=== PATIENT | female | born 1945 | race Caucasian/White ===

== ENCOUNTER 2016-12-06 08:13 | Emergency (ER) | payer MEDICARE ==
[2016-12-06] MEDS ORDERED: NORMAL SALINE 1000 ML 1,000 ML IV ONE (08:23)
[2016-12-06] MEDS ORDERED: ONDANSETRON HCL INJ/PF 4 MG/2 ML SDV IV ONE (08:23)
[2016-12-06 08:45] LABS: ABSOLUTE LYMPHOCYTES (AUTO) 1.3 10^3/uL (0.5-4.7); ABSOLUTE MONOCYTES (AUTO) 0.1 10^3/uL (0.1-1.4); ABSOLUTE NEUT (AUTO) 11.2 10^3/uL (1.7-8.2); BASOPHILS % (AUTO) 0.1 % (0-2); HEMATOCRIT 38.6 % (36.0-47.0); HEMOGLOBIN 12.5 g/dL (12.0-15.5); HGB HCT DIFFERENCE -1.1; LYMPHOCYTES % (AUTO) 10.6 % (13-45); MEAN CORPUSCULAR HEMOGLOBIN 28.6 pg (27.0-33.4); MEAN CORPUSCULAR HGB CONC 32.3 g/dL (32.0-36.0); MEAN CORPUSCULAR VOLUME 89 fl (80-97); MONOCYTES % (AUTO) 0.8 % (3-13); RED BLOOD COUNT 4.36 10^6/uL (3.72-5.28); SEGMENTED NEUTROPHILS % (AUTO) 88.5 % (42-78); WHITE BLOOD COUNT 12.7 10^3/uL (4.0-10.5)
[2016-12-06] MEDS ORDERED: MECLIZINE HCL 25 MG TABLET PO ONE (08:53)
[2016-12-06] MEDS ORDERED: LORAZEPAM INJ 2 MG/1 ML VIAL IV ONE (08:53)
[2016-12-06 09:00] LABS: ALANINE AMINOTRANSFERASE 28 U/L (9-52); ALBUMIN 3.9 g/dL (3.5-5.0); ALKALINE PHOSPHATASE 65 U/L (38-126); ANION GAP 15 (5-19); ASPARTATE AMINO TRANSFERASE 16 U/L (14-36); BILIRUBIN,TOTAL 0.8 mg/dL (0.2-1.3); BLOOD UREA NITROGEN 22 mg/dL (7-20); CALCIUM 9.1 mg/dL (8.4-10.2); CARBON DIOXIDE 23 mmol/L (22-30); CHLORIDE 105 mmol/L (98-107); CREATINE KINASE 21 U/L (30-135); CREATININE RESULT 0.73 mg/dL (0.52-1.25); GLUCOSE 200 mg/dL (75-110); LIPASE 48.6 U/L (23-300); POTASSIUM 3.9 mmol/L (3.6-5.0); SODIUM 143.2 mmol/L (137-145); TOTAL PROTEIN 6.8 g/dL (6.3-8.2)
[2016-12-06 09:18] LABS: TROPONIN I < 0.012 ng/mL
--- NOTE | 2016-12-06 09:24 | ER Document Report ---
ED General - General Chief Complaint: Dizziness Stated Complaint: NAUSEA,VOMITING Mode of Arrival: Ambulatory Information source: Patient Notes: 71-year-old female history of vertigo presents with complaints of sudden vertigo sensations. Patient notes she suddenly got dizzy and nauseous and vomiting. Patient notes the room is spinning. Denies any neurological deficits otherwise. Patient vomited multiple times as a result overnight and today TRAVEL OUTSIDE OF THE [place] IN LAST 30 DAYS: No - HPI Onset: Yesterday Onset/Duration: Sudden Quality of pain: No pain Severity: Moderate Pain Level: Denies Associated symptoms: Nausea, Vomiting, Other Exacerbated by: Movement Relieved by: Denies Similar symptoms previously: Yes Recently seen / treated by doctor: No - Related Data Allergies/Adverse Reactions: No Known Allergies Allergy (Unverified 03/26/16 10:03) Past Medical History - Social History Smoking Status: Never Smoker Cigarette use (# per day): No Chew tobacco use (# tins/day): No Smoking Education Provided: No Family History: Reviewed & Not Pertinent - Past Medical History Cardiac Medical History: Reports: Hx Hypercholesterolemia, Hx Hypertension Denies: Hx Coronary Artery Disease, Hx Heart Attack Pulmonary Medical History: Denies: Hx Asthma, Hx Bronchitis, Hx COPD, Hx Pneumonia Neurological Medical History: Denies: Hx Cerebrovascular Accident, Hx Seizures Endocrine Medical History: Reports: Hx Diabetes Mellitus Type 2 Musculoskeltal Medical History: Reports Hx Arthritis Psychiatric Medical History: Reports: Hx Depression Past Surgical History: Reports: Hx Breast Surgery, Hx Orthopedic Surgery - Immunizations Hx Diphtheria, Pertussis, Tetanus Vaccination: - UNSURE Review of Systems - Review of Systems Notes: REVIEW OF SYSTEMS: CONSTITUTIONAL : Denies fever, chills, or sweats. Denies recent illness. EENT: Denies eye, ear, throat, or mouth pain or symptoms. Denies nasal or sinus congestion or discharge. Denies throat, tongue, or mouth swelling or difficulty swallowing. CARDIOVASCULAR: Denies chest pain. Denies palpitations or racing or irregular heart beat. Denies ankle edema. RESPIRATORY: Denies cough, cold, or chest congestion. Denies shortness of breath, difficulty breathing, or wheezing. GASTROINTESTINAL: Admits nausea vomiting GENITOURINARY: Denies difficulty urinating, painful urination, burning, frequency, blood in urine, or discharge. FEMALE GENITOURINARY: Denies vaginal bleeding, heavy or abnormal periods, irregular periods. Denies vaginal discharge or odor. MUSCULOSKELETAL: Denies back or neck pain or stiffness. Denies joint pain or swelling. SKIN: Denies rash, lesions or sores. HEMATOLOGIC : Denies easy bruising or bleeding. LYMPHATIC: Denies swollen, enlarged glands. NEUROLOGICAL: Admits to dizziness PSYCHIATRIC: Denies anxiety or stress. Denies depression, suicidal ideation, or homicidal ideation. ALL OTHER SYSTEMS REVIEWED AND NEGATIVE. Dictation was performed using [employer] voice recognition software PHYSICAL EXAMINATION: GENERAL: Well-appearing, well-nourished and in no acute distress. HEAD: Atraumatic, normocephalic. EYES: Pupils equal round and reactive to light, extraocular movements intact, conjunctiva are normal. ENT: Nares patent, oropharynx clear without exudates. Moist mucous membranes. NECK: Normal range of motion, supple without lymphadenopathy LUNGS: Breath sounds clear to auscultation bilaterally and equal. No wheezes rales or rhonchi. HEART: Regular rate and rhythm without murmurs ABDOMEN: Soft, nontender, nondistended abdomen. No guarding, no rebound. No masses appreciated. Female : deferred Musculoskeletal: Normal range of motion, no pitting or edema. No cyanosis. NEUROLOGICAL: Cranial nerves grossly intact. Normal speech, normal gait. Normal sensory, motor exams PSYCH: Normal mood, normal affect. SKIN: Warm, Dry, normal turgor, no rashes or lesions noted. Physical Exam - Vital signs Vitals: Resp Pulse Ox 24 H 97 12/06/16 08:31 12/06/16 08:31 Course - Re-evaluation Re-evalutation: 12/06/16 09:24 Patient has probable vertigo, given Antivert and Ativan, lab results note no significant abnormality except for mild white count elevation 12/06/16 10:10 CT head lab work note no significant abnormality, patient is resting comfortable satting 96%. Patient will be discharged home as she is otherwise stable After performing a Medical Screening Examination, I estimate there is LOW risk for INTRACRANIAL HEMORRHAGE, ISCHEMIC CVA, MALIGNANT DYSRHYTHMIA, ACUTE CORONARY SYNDROME, MENINGITIS, PULMONARY EMBOLISM, or SEPSIS thus I consider the discharge disposition reasonable. The patient and I have discussed the diagnosis and risks, and we agree with discharging home with close follow-up with the understanding that symptoms and presentations can change. We also discussed returning to the Emergency Department immediately if new or worsening symptoms occur. We have discussed the symptoms which are most concerning (e.g., changing or worsening pain, weakness, vomiting, fever) that necessitate immediate return. - Vital Signs Vital signs: Temp Pulse Resp BP Pulse Ox 97.6 F 63 18 141/51 H 99 12/06/16 08:38 12/06/16 08:38 12/06/16 09:02 12/06/16 09:02 12/06/16 09:02 - Laboratory Result Diagrams: 12/06/16 08:28 12/06/16 08:28 Laboratory results interpreted by me: 12/06/16 12/06/16 08:28 08:28 WBC 12.7 H RDW 15.0 H Seg Neutrophils % 88.5 H Lymphocytes % 10.6 L Monocytes % 0.8 L Absolute Neutrophils 11.2 H BUN 22 H Glucose 200 H Creatine Kinase 21 L - Diagnostic Test Radiology reviewed: Image reviewed, Reports reviewed Discharge - Discharge Clinical Impression: Vertigo Nausea & vomiting Qualifiers: Vomiting type: unspecified Vomiting Intractability: non-intractable Qualified Code(s): R11.2 - Nausea with vomiting, unspecified Condition: Stable Disposition: HOME, SELF-CARE Instructions: Vomiting ([facility]), Vertigo ([facility]) Prescriptions: Ondansetron [Zofran Odt 4 mg Tablet] 1 - 2 tab PO Q4HP PRN #20 tab.rapdis PRN Reason: Lorazepam [Ativan 1 mg Tablet] 1 mg PO Q4 PRN #14 tab PRN Reason: Meclizine HCl [Antivert 25 mg Tablet] 25 mg PO TID PRN #21 tablet PRN Reason: Referrals: QAMAR MASCORRO MD [ACTIVE STAFF] - Follow up as needed
[2016-12-06 10:13] VITALS: BP 121/54
== END 2016-12-06 10:59 | disposition home or self-care (01) ==
LOC: ER 08:13
DX: R42 Dizziness and giddiness (principal); R11.2 Nausea with vomiting, unspecified
CPT/HCPCS: 99285; 96374; 96375; 36415; 82553; 82550; 83690; 85025; 80053; 84484; 71010; 70450; A9270; J2060; J2405; J7030

== ENCOUNTER → 2016-12-15 | Outpatient (CLI) | payer MEDICARE | LOC: OD 10:24 | PROVIDERS: ATTEND Plastic Surgery | DX: L97.322 Non-pressure chronic ulcer of left ankle with fat layer exposed (principal) ==

== ENCOUNTER 2017-01-22 09:24 | Day surgery (SDC) | payer MEDICARE ==
[~2017-01-22 09:24] MED LIST: CHONDR SU A NA/HYALUR INTRAOC KIT (SURGICARE) ONE; EPINEPHRINE INJ/PF 1 MG/1 ML AMPULE ONE; KETOROLAC TROMETHAMINE 0.45% 4 DROP/0.4 ML DROPERETTE OS PRN; LIDOCAINE 1% INJ-PF (10 MG/ML) 30 ML SDV ONE; MIDAZOLAM 2 MG/2 ML INJ ONE
[2017-01-22] MEDS: BESIFLOXACIN HCL 0.6% OPH SUSP 5 ML BOTTLE OS PRN ×3 (09:49→11:07)
[2017-01-22] MEDS: CYCLOPENTOLATE 0.2%/PHENYLEPHRINE 1% OPH SOLN 2 ML OS PRN ×3 (09:49→10:09)
[2017-01-22] MEDS: TROPICAMIDE 1% OPH SOLN 3 ML OS PRN ×3 (09:49→10:09)
[2017-01-22] MEDS: TETRACAINE HCL 0.5% OPH SOLN 2 ML OS PRN ×3 (09:50→10:42)
--- NOTE | 2017-01-22 20:03 | [facility] OPERATIVE REPORT E ---
[facility] Operative Report NAME: BARBARA CROWLEY AGE: 71Y DATE OF SURGERY: 01/22/2017 ROOM: PREOPERATIVE DIAGNOSIS: CATARACT, LEFT EYE. POSTOPERATIVE DIAGNOSIS: CATARACT, LEFT EYE. OPERATION: Cataract extraction with intraocular lens implant of the left eye. SURGEON: JOSE DANIEL GUZMAN M.D. ANESTHESIA: Topical. PROCEDURE: After obtaining appropriate consent, the patient's left eye was prepped and draped in sterile fashion as well as the surgeon in a sterile manner and cataract surgery was started. First a paracentesis blade was used to make a small side-port incision. Viscoelastic was used to inflate the anterior chamber. Next a 2.4 mm incision was made with the paracentesis blade. A continuous capsulorrhexis incision was made using a cystotome and Utrata forceps. Following this hydrodissection was carried out to make the lens fully loose and mobile and it was rotated 90 degrees. Following this, a kiiimd-wsv-gmasdor technique was used to phacoemulsify the lens with a CDE of 8.07. The remaining cortex was removed with irrigation/aspiration. Provisc was instilled into the capsular bag to inflate the bag. A SN60WF, 22.0 diopter lens was placed. The remaining viscoelastic material was removed with irrigation/aspiration. Following this, a 10-0 nylon suture was used to close the incision and it was found to be watertight. Vigamox was instilled in the eye and a protective shield was placed over the eye. The patient returned to the postoperative recovery in stable condition. DICTATING PHYSICIAN: JOSE DANIEL GUZMAN M.D. [id number] PHY#: [id number] ID: [id number] JOB#: [id number] ACCT: [id number] cc:JOSE DANIEL GUZMAN M.D. >
--- NOTE | 2017-01-22 20:09 | DISCHARGE SUMMARY E ---
Discharge Summary NAME: BARBARA CROWLEY : 1945 AGE: 71Y ADMITTED: 01/22/2017 DISCHARGED: 01/22/2017 This is a 71-year-old female who underwent cataract extraction of the left eye. DIAGNOSIS: Cataract, left eye. She underwent surgery because she was having difficulty reading phone books and medicine bottles. DISCHARGE INSTRUCTIONS: She is to be on a regular diet. No bending at her waist, no heavy lifting. She is to use Besivance, Ilevro, and Durezol at 3:00 p.m. and 8:00 p.m., and sleep with a rigid shield. I will see her for her one day postoperative tomorrow. DICTATING PHYSICIAN: JOSE DANIEL GUZMAN M.D. [id number] PHY#: [id number] ID: [id number] JOB#: [id number] ACCT: [id number] cc:JOSE DANIEL GUZMAN M.D. >
== END 2017-01-22 11:49 | disposition home or self-care (01) ==
LOC: SC 09:24
PROVIDERS: ATTEND Internal Medicine
PROC: 08RK3JZ Replacement of Left Lens with Synthetic Substitute, Percutaneous Approach (ICD-10-PCS; principal; 2017-01-22 10:30)
DX: H25.813 Combined forms of age-related cataract, bilateral (principal); H35.3131 Nonexudative age-related macular degeneration, bilateral, early dry stage; E11.9 Type 2 diabetes mellitus without complications; H40.013 Open angle with borderline findings, low risk, bilateral; I10 Essential (primary) hypertension; E78.00 Pure hypercholesterolemia, unspecified; M19.90 Unspecified osteoarthritis, unspecified site; Z79.899 Other long term (current) drug therapy; Z79.84 Long term (current) use of oral hypoglycemic drugs; Z79.82 Long term (current) use of aspirin; Z85.3 Personal history of malignant neoplasm of breast
CPT/HCPCS: 66984; 82962; V2632; J3490 ×2; A9270; J0171; 142; J2250

== ENCOUNTER 2017-02-19 08:42 | Day surgery (SDC) | payer MEDICARE ==
[~2017-02-19 08:42] MED LIST changes: +KETOROLAC TROMETHAMINE 0.45% 4 DROP/0.4 ML DROPERETTE OD PRN; -KETOROLAC TROMETHAMINE 0.45% 4 DROP/0.4 ML DROPERETTE OS PRN; -MIDAZOLAM 2 MG/2 ML INJ ONE
[2017-02-19] MEDS: TROPICAMIDE 1% OPH SOLN 3 ML OD PRN ×3 (08:57→09:17)
[2017-02-19] MEDS: CYCLOPENTOLATE 0.2%/PHENYLEPHRINE 1% OPH SOLN 2 ML OD PRN ×3 (08:57→09:17)
[2017-02-19] MEDS: BESIFLOXACIN HCL 0.6% OPH SUSP 5 ML BOTTLE OD PRN ×4 (08:57→09:56)
[2017-02-19] MEDS: TETRACAINE HCL 0.5% OPH SOLN 2 ML OD PRN ×3 (08:58→09:35)
[2017-02-19] MEDS ORDERED: MIDAZOLAM 2 MG/2 ML INJ ONE (09:06)
--- NOTE | 2017-02-19 21:15 | [facility] OPERATIVE REPORT E ---
[facility] Operative Report NAME: BARBARA CROWLEY AGE: 71Y DATE OF SURGERY: 02/19/2017 ROOM: PREOPERATIVE DIAGNOSIS: Cataract, right eye. POSTOPERATIVE DIAGNOSIS: Cataract, right eye. OPERATION: Cataract extraction with intraocular lens implant of the right eye. SURGEON: JOSE DANIEL GUZMAN M.D. ANESTHESIA: Topical. PROCEDURE: After obtaining appropriate consent, the patient's right eye was prepped and draped in sterile fashion as well as the surgeon in a sterile manner and cataract surgery was started. First a paracentesis blade was used to make a small side-port incision. Viscoelastic was used to inflate the anterior chamber. Next a 2.4 mm incision was made with the paracentesis blade. A continuous capsulorrhexis incision was made using a cystotome and Utrata forceps. Following this hydrodissection was carried out to make the lens fully loose and mobile and it was rotated 90 degrees. Following this, a ycjxxv-vbi-mocwryh technique was used to phacoemulsify the lens with a CDE of 8.97. The remaining cortex was removed with irrigation/aspiration. Provisc was instilled into the capsular bag to inflate the bag. A SN60WF, 22.0 diopter lens was placed. The remaining viscoelastic material was removed with irrigation/aspiration. Following this, a 10-0 nylon suture was used to close the incision and it was found to be watertight. Vigamox was instilled in the eye and a protective shield was placed over the eye. The patient returned to the postoperative recovery in stable condition. DICTATING PHYSICIAN: JOSE DANIEL GUZMAN M.D. [id number] PHY#: [id number] ID: [id number] JOB#: [id number] ACCT: [id number] cc:JOSE DANIEL GUZMAN M.D. >
--- NOTE | 2017-02-19 21:20 | [facility] DISCHARGE SUMMARY E ---
[facility] Discharge Summary NAME: BARBARA CROWLEY AGE: 71Y ADMITTED: 02/19/2017 DISCHARGED: 02/19/2017 HOSPITAL COURSE: This is a 71-year-old female who underwent cataract extraction of her right eye. DIAGNOSIS: Cataract, right eye. INDICATIONS: She underwent surgery because she was having difficulty seeing TV and reading medicine bottles. DISCHARGE INSTRUCTIONS: She should be on a regular diet. No bending at her waist. No heavy lifting. She should use her Besivance, Ilevro, and Durezol at 3 p.m. and 8 p.m. and sleep with a rigid shield. I will see her for her 1 day postoperative tomorrow. DICTATING PHYSICIAN: JOSE DANIEL GUZMAN M.D. [id number] PHY#: [id number] ID: [id number] JOB#: [id number] ACCT: [id number] cc:JOSE DANIEL GUZMAN M.D. >
== END 2017-02-19 10:42 | disposition home or self-care (01) ==
LOC: SC 08:42
PROVIDERS: ATTEND Internal Medicine
PROC: 08RJ3JZ Replacement of Right Lens with Synthetic Substitute, Percutaneous Approach (ICD-10-PCS; principal; 2017-02-19 09:30)
DX: H25.811 Combined forms of age-related cataract, right eye (principal); Z96.1 Presence of intraocular lens; E11.9 Type 2 diabetes mellitus without complications; I10 Essential (primary) hypertension; Z79.84 Long term (current) use of oral hypoglycemic drugs; Z79.899 Other long term (current) drug therapy; Z79.82 Long term (current) use of aspirin
CPT/HCPCS: 66984; 82962; V2632; J2250; J3490 ×2; A9270; J0171; 142

== ENCOUNTER 2018-07-21 19:10 | Inpatient (IN) | payer MEDICARE ==
--- NOTE | 2018-07-21 19:46 | ER Document Report ---
ED Extremity Problem, Lower - General Chief Complaint: Leg Injury Stated Complaint: LEFT ANKLE PAIN Time Seen by Provider: 07/21/18 19:39 Mode of Arrival: Medic Information source: Patient Notes: Patient is a 72-year-old morbidly obese female comes to emergency room via EMS with a complaint of a fall with a deformity in the right lower extremity. Patient states that she was getting up out of her recliner using her walker she was rounding a corner to go to the kitchen and she says "I just went down" landing on my butt and had instant pain. Patient states she was unable to get herself to her feet until EMS arrived and were able to place her on a stretcher. Patient has a history of fracture of that left lower ankle in [address] Boone. According to patient she has had some complications after surgery and she wears specialized support for that ankle and foot which she has been doing well with. She uses the walker at all times in the house but uses a cane when she goes out. She denies any other injuries had no head trauma. TRAVEL OUTSIDE OF THE [place] IN LAST 30 DAYS: No - HPI Patient complains to provider of: Injury, Pain, Swelling Location: Ankle, Leg Occurred: Just prior to arrival Where: Home Onset/Duration: Sudden, Worse Quality of pain: Sharp, Stabbing Severity: Moderate Pain Level: 3 Context: Fell Recent injury: Yes Associated symptoms: Unable to bear weight Exacerbated by: Movement Relieved by: Elevation, Ice, Rest Other injuries: No other sustained injuries - Related Data Allergies/Adverse Reactions: meclizine Adverse Reaction (Intermediate, Verified 02/19/17 09:05) Dizziness, VOMITING Past Medical History - General Information source: Patient, [facility] Records - Social History Smoking Status: Never Smoker Cigarette use (# per day): No Chew tobacco use (# tins/day): No Smoking Education Provided: No Frequency of alcohol use: None Drug Abuse: None Lives with: Family Family History: Reviewed & Not Pertinent - Past Medical History Cardiac Medical History: Reports: Hx Hypercholesterolemia, Hx Hypertension Denies: Hx Coronary Artery Disease, Hx Heart Attack Pulmonary Medical History: Denies: Hx Asthma, Hx Bronchitis, Hx COPD, Hx Pneumonia Neurological Medical History: Denies: Hx Cerebrovascular Accident, Hx Seizures - VERTIGO Endocrine Medical History: Reports: Hx Diabetes Mellitus Type 2 GI Medical History: Denies: Hx Hepatitis, Hx Hiatal Hernia, Hx Ulcer Musculoskeletal Medical History: Reports Hx Arthritis Psychiatric Medical History: Reports: Hx Depression Infectious Medical History: Denies: Hx Hepatitis Past Surgical History: Reports: Hx Breast Surgery, Hx Mastectomy - LUMPECTOMY, Hx Orthopedic Surgery. Denies: Hx Hysterectomy, Hx Open Heart Surgery, Hx Pacemaker - Immunizations Hx Diphtheria, Pertussis, Tetanus Vaccination: - UNSURE Review of Systems - Review of Systems Constitutional: No symptoms reported EENT: No symptoms reported Cardiovascular: No symptoms reported Respiratory: No symptoms reported Gastrointestinal: No symptoms reported Genitourinary: No symptoms reported Female Genitourinary: No symptoms reported Musculoskeletal: See HPI, Deformity, Leg swelling, Ankle swelling Skin: No symptoms reported Hematologic/Lymphatic: No symptoms reported Neurological/Psychological: No symptoms reported -: Yes All other systems reviewed and negative Physical Exam - Vital signs Vitals: Temp Pulse Resp BP Pulse Ox 98.2 F 64 25 H 133/56 H 96 07/21/18 19:24 07/21/18 19:24 07/21/18 19:24 07/21/18 19:24 07/21/18 19:24 Interpretation: Hypertensive - Notes Notes: Patient is well-nourished well-developed morbidly obese female she is in no apparent distress but does appear somewhat uncomfortable however as long as she remains still she has no pain. - General General appearance: Alert In distress: None - HEENT Head: Normocephalic, Atraumatic Eyes: Normal Ears: Normal External canal: Normal Sinus: Normal Nasal: Normal Mouth/Lips: Normal Mucous membranes: Normal, Moist Pharynx: Normal. No: Blood in hypopharynx, Erythema, Exudate, Peritonsillar abscess, Post nasal drainage, Retropharyngeal abscess, Tonsillar hypertrophy, Uvular edema, Potential airway comprom. Neck: Normal, Supple. No: Anterior cervical chain, Posterior cervical chain, Brudzinski, Kernig's, Lymphadenopathy, Meningismus, Shotty nodes, Subcutaneous emphysema, Thyroid nodule, Thyromegally - Respiratory Respiratory status: No respiratory distress Chest status: Nontender Breath sounds: Normal. No: Rales, Rhonchi, Stridor, Wheezing Chest palpation: Normal - Cardiovascular Rhythm: Regular Heart sounds: Normal auscultation Murmur: No - Abdominal Inspection: Normal Distension: No distension. No: Tympanitic Bowel sounds: Normal Tenderness: Nontender Organomegaly: No organomegaly - Extremities General upper extremity: Normal inspection, Nontender, Normal ROM, Normal strength Forearm: Normal, Nontender, Abrasion Wrist: Normal, Nontender Calf: Tender, Deformity, Unable to bear weight, Other - Examination patient's left lower extremity shows her to be a deformity at the distal end of the tib- fib near the ankle area but slightly above. Patient's foot is rotated outward. She has good normal color currently with good vascular flow. She has good movement of her toes. Ankle: Tender, Deformity, Limited ROM, Unable to bear weight, Other - Patient does display good dorsalis pedal pulse as well as posterior tibial pulses are present. Foot: Normal, Nontender, Unable to bear weight, Other - Again posterior tibial pulses and dorsalis pedal pulses are intact patient has good cap refill in the nailbeds of the toes of the left foot. - Neurological Neuro grossly intact: Yes Cognition: Normal Orientation: AAOx4 Winn Coma Scale Eye Opening: Spontaneous Joana Coma Scale Verbal: Oriented Winn Coma Scale Motor: Obeys Commands Joana Coma Scale Total: 15 Speech: Normal Course - Re-evaluation Re-evalutation: 07/21/18 20:[address] Boone orthopedic surgeon and he is accepted patient into his service. I inquired with him if he would like me to consult medicine he said yes to go ahead and do that for him. Patient is hypertensive non-insulin- dependent diabetic I have ordered all the pre-labs along with the EKG and one view chest x-ray so they have everything ready for them when the time comes. Patient is comfortable. I am going to place her in a bulky splint as per Dr. Boone for now she has good vascularization good pulses distally 07/21/18 20:[address] Quintero with the hospital service and informed her of patient' s status and request by Dr. Boone for medical management. Again I have all ready ordered labs and EKGs for them. - Vital Signs Vital signs: Temp Pulse Resp BP Pulse Ox 98.2 F 64 25 H 133/56 H 96 07/21/18 19:24 07/21/18 19:24 07/21/18 19:24 07/21/18 19:24 07/21/18 19:24 - Laboratory Result Diagrams: 07/21/18 20:00 07/21/18 20:00 Laboratory results interpreted by me: 07/21/18 07/21/18 20:00 20:00 WBC 12.5 H Hgb 11.7 L Hct 35.6 L Seg Neutrophils % 80.8 H Lymphocytes % 12.9 L Absolute Neutrophils 10.1 H PT 15.9 H Procedures - Immobilization Left Posterior Ankle Pre-Proc Neuro Vasc Exam: Normal Immobilizer type: Ankle stirrup, Short Leg Posterior Performed by: Provider, PCT Post-Proc Neuro Vasc Exam: Normal Alignment checked and good: Yes Notes: 07/21/18 20:44 For stabilization of decided to do a posterior OCL along with a stirrup splint this will take some stress off of patient's leg once we get it positioned. Also be easier for us to check cap refill of the toes and to keep leg straight for patient. Discharge - Discharge Clinical Impression: Closed fracture of left tibia and fibula Qualifiers: Encounter type: initial encounter Qualified Code(s): S82.202A - Unspecified fracture of shaft of left tibia, initial encounter for closed fracture Condition: Stable Disposition: ADMITTED INPATIENT Admitting Provider: Surgicalist Unit Admitted: Surgical Floor Referrals: CRISTI CANELA PA-C [COMMUNITY BASED STAFF] - Follow up as needed
[2018-07-21] MEDS ORDERED: NORMAL SALINE 1000 ML 1,000 ML IV ONE (19:52)
--- NOTE | 2018-07-21 19:55 | RADIOLOGY REPORT (SQ) ---
EXAM DESCRIPTION: TIBIA FIBULA LEFT COMPLETED DATE/TIME: 07/21/2018 7:37 pm REASON FOR STUDY: positive deformity COMPARISON: None. NUMBER OF VIEWS: Two views. TECHNIQUE: Two radiographic images acquired of the left tibia and fibula to include the knee and ank le in at least one projection. LIMITATIONS: None. FINDINGS: MINERALIZATION: Normal. BONES: Comminuted fracture of the distal tibia. Fracture of the proximal fibula. SOFT TISSUES: No obvious swelling or foreign body. OTHER: Compression plate on the distal fibula. 2 long cannulated screws are in the medial malleolus. IMPRESSION: Comminuted fracture of the distal tibia and fracture of the proximal fibula. TECHNICAL DOCUMENTATION: JOB ID: [id number] [employer]- All Rights Reserved Reading location - IP/workstation name: [email or web address]
[2018-07-21 20:31] LABS: ABSOLUTE BASOPHILS # (AUTO) 0.1 10^3/uL (0.0-0.2); ABSOLUTE EOSINOPHILS # (AUTO) 0.1 10^3/uL (0.0-0.6); ABSOLUTE LYMPHOCYTES (AUTO) 1.6 10^3/uL (0.5-4.7); ABSOLUTE MONOCYTES (AUTO) 0.6 10^3/uL (0.1-1.4); ABSOLUTE NEUT (AUTO) 10.1 10^3/uL (1.7-8.2); BASOPHILS % (AUTO) 0.6 % (0-2); EOSINOPHILS % (AUTO) 0.7 % (0-6); HEMATOCRIT 35.6 % (36.0-47.0); HEMOGLOBIN 11.7 g/dL (12.0-15.5); LYMPHOCYTES % (AUTO) 12.9 % (13-45); MEAN CORPUSCULAR HEMOGLOBIN 29.7 pg (27.0-33.4); MEAN CORPUSCULAR VOLUME 90 fl (80-97); PLATELET COUNT 186 10^3/uL (150-450); RED BLOOD COUNT 3.95 10^6/uL (3.72-5.28); SEGMENTED NEUTROPHILS % (AUTO) 80.8 % (42-78); TOTAL CELLS COUNTED % (AUTO) 100 %; WHITE BLOOD COUNT 12.5 10^3/uL (4.0-10.5)
[2018-07-21 20:35] LABS: INTERNATIONAL RATION (INR) 1.21; PROTHROMBIN TIME 15.9 SEC (11.4-15.4)
[2018-07-21 20:36] LABS: PARTIAL THROMBOPLASTIN TIME 31.4 SEC (23.5-35.8)
--- NOTE | 2018-07-21 20:51 | RADIOLOGY REPORT (SQ) ---
EXAM DESCRIPTION: CHEST SINGLE VIEW COMPLETED DATE/TIME: 07/21/2018 8:31 pm REASON FOR STUDY: pre op COMPARISON: 04/01/2016 EXAM PARAMETERS: NUMBER OF VIEWS: One view. TECHNIQUE: Single frontal radiographic view of the chest acquired. RADIATION DOSE: NA LIMITATIONS: None. FINDINGS: LUNGS AND PLEURA: No opacities, masses or pneumothorax. No pleural effusion. MEDIASTINUM AND HILAR STRUCTURES: No masses. Contour normal. HEART AND VASCULAR STRUCTURES: Cardiac silhouette is enlarged. There is no pulmonary edema. BONES: No acute findings. HARDWARE: None in the chest. OTHER: No other significant finding. IMPRESSION: Cardiomegaly. No pulmonary edema. TECHNICAL DOCUMENTATION: JOB ID: [id number] [employer]- All Rights Reserved Reading location - IP/workstation name: [email or web address]
[2018-07-21] MEDS ORDERED: FENTANYL CITRATE INJ/PF 100 MCG/2 ML AMPUL IV ONE (20:54)
[2018-07-21 20:55] LABS: ALANINE AMINOTRANSFERASE 15 U/L (9-52); ALBUMIN 3.5 g/dL (3.5-5.0); ALKALINE PHOSPHATASE 67 U/L (38-126); ANION GAP 7 (5-19); ASPARTATE AMINO TRANSFERASE 33 U/L (14-36); BILIRUBIN,DIRECT 0.2 mg/dL (0.0-0.4); BILIRUBIN,TOTAL 0.7 mg/dL (0.2-1.3); BLOOD UREA NITROGEN 20 mg/dL (7-20); CALCIUM 8.9 mg/dL (8.4-10.2); CARBON DIOXIDE 27 mmol/L (22-30); CHLORIDE 107 mmol/L (98-107); GLUCOSE 105 mg/dL (75-110); SODIUM 141.4 mmol/L (137-145); TOTAL PROTEIN 6.6 g/dL (6.3-8.2)
[2018-07-22] MEDS ORDERED: GLUCAGON,HUMAN RECOMB 1 MG INJ IM PRN (00:55)
[2018-07-22] MEDS ORDERED: DEXTROSE 40% GEL 15 GM TUBE PO PRN ×2 (00:55)
[2018-07-22] MEDS ORDERED: DEXTROSE 50%-WATER 25 GM/50 ML DISP.SYRIN IV PRN ×2 (00:55)
[2018-07-22] MEDS ORDERED: HYDRALAZINE HCL INJ/PF 20 MG/1 ML SDV IV PRN (00:56)
--- NOTE | 2018-07-22 01:25 | PDOC CONSULTATION ---
Consultation Consult Date: 07/22/18 Attending physician:: MADIE BOONE Consult reason:: Medical management History of Present Illness Admission Date/PCP: 07/21/18 21:52 RAJ JUÁREZ MD Patient complains of: Status post fall History of Present Illness: BARBARA CROWLEY is a 72 year old female who comes to the emergency department after coming out of the recliner and trying to reach her walker, she tells me that she was able to reach her walker but suddenly she fell to the floor. Before the event that she denies any dizziness, lightheadedness, shortness of breath, chest pain, palpitations or neurological symptomatology. Patient had several similar episodes in the past with multiple fractures in both lower extremities. Left lower extremity x-ray shows closed fracture of left tibia and fibula. Dr. Boone is the orthopedics handyperson and she is planned for surgery during the day. Patient has history of paroxysmal atrial fibrillation diagnosed in 2013, not on anticoagulation, on metoprolol. Patient tells me that she goes in and out of irregular heartbeat all the time but nobody has done anything about this. 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 She is on aspirin and metoprolol at home. EKG in the emergency department was poorly done. Regarding her diabetes mellitus she has been diagnosed about 10 years ago, is well controlled, her last hemoglobin A1c was about a week ago and was 5.8. Patient is on metformin and glimepiride at home Regarding her hypertension apparently is usually well controlled when she is on metoprolol, lisinopril and amlodipine. Last stress test about 5 years ago in [place], apparently unremarkable as per patient. Past Medical History Cardiac Medical History: Reports: Atrial Fibrillation, Hyperlipidema, Hypertension Endocrine Medical History: Reports: Diabetes Mellitus Type 2 Malignancy Medical History: Reports: Breast Cancer - Status post left lumpectomy with radiation and chemotherapy Musculoskeltal Medical History: Reports: Arthritis, Other - Morbid obesity Psychiatric Medical History: Reports: Depression Past Surgical History Past Surgical History: Multiple surgeries in both lower extremities including both ankles and left leg Past Surgical History: Reports: Orthopedic Surgery - Multiple orthopedic surgery in the lower extremities with history of multip, Other - Left lumpectomy Cataract surgery Social History Information Source: Patient Lives with: Family Smoking Status: Never Smoker Frequency of Alcohol Use: Rare Hx Recreational Drug Use: No Hx Prescription Drug Abuse: No Past Social History Note: Lives with her . Patient walks with a walker as per her severe knee osteoarthritis and multiple lower extremity surgeries. Family History Family History: Reviewed & Not Pertinent Family History: Grandmother and aunt on her father's side with history of breast cancer Parental Family History Reviewed: Yes - As above Children Family History Reviewed: NA Sibling(s) Family History Reviewed.: NA Medication/Allergy Home Medications: Amlodipine Besylate 5 mg PO DAILY 04/01/16 Ascorbic Acid [Vitamin C 500 mg Tablet] 500 mg PO TID 04/01/16 Aspirin [Aspirin EC] 81 mg PO DAILY 04/01/16 Atorvastatin Calcium 20 mg PO DAILY 04/01/16 Calcium Carbonate [Calcium] 600 mg PO DAILY 04/01/16 Escitalopram Oxalate [Lexapro] 20 mg PO DAILY 04/01/16 Glimepiride 1 mg PO DAILY 04/01/16 Lisinopril 10 mg PO DAILY 04/01/16 Metformin HCl [Metformin HCl ER] 1,000 mg PO DAILY 04/01/16 Metoprolol Succinate 25 mg PO DAILY 04/01/16 Besifloxacin HCl [Besivance 0.6% Oph Susp 5 ml] 1 drop OP ASDIR 01/20/17 Cholecalciferol (Vitamin D3) [Vitamin D3] 1,000 unit PO DAILY 01/20/17 Difluprednate [Durezol] 1 drop OP ASDIR 01/20/17 Naproxen Sodium [Aleve] 220 mg PO ASDIR PRN 01/20/17 Nepafenac [Ilevro] 1 drop OP ASDIR 01/20/17 Allergies/Adverse Reactions: meclizine Adverse Reaction (Intermediate, Verified 02/19/17 09:05) Dizziness, VOMITING Review of Systems Review of Systems: As outlined in the HPI, all others negative Physical Exam Vital Signs: Temp Pulse Resp BP Pulse Ox 98.1 F 64 17 146/62 H 97 07/21/18 23:04 07/21/18 19:24 07/21/18 23:02 07/21/18 22:01 07/21/18 23:02 Additional comments: General appearance: Well-developed, morbid obese, alert and cooperative, and appears to be in no acute distress Head: Normocephalic Eyes: PEERL, EOMI, vision is grossly intact. Ears: External auditory canal and tympanic membranes clear, hearing grossly intact. Nose: No nasal discharge. Throat: Oral cavity and pharynx normal. No inflammation, swelling, exudate or lesions. Neck: Neck supple, nontender without lymphadenopathy, masses or thyromegaly. Cardiac: Normal S1 and S2. No S3, S4 or murmurs. Rhythm is regular. There is no peripheral edema, cyanosis or pallor. Extremities are warm and well perfused. Capillary refill is less than 2 seconds. Left carotid bruit. Lungs: Clear to auscultation and percussion without rales, rhonchi, wheezing or diminished breath sounds. Not using accessory muscles. Abdomen: Positive bowel sounds. Soft. Nondistended, nontender. No guarding or rebound. No masses. No hepatosplenomegaly Extremities: Left lower extremity with a splint and wrapped Neurological: Cranial nerves II through XII grossly intact. Skin: Skin normal color, texture and turgor with no lesions or eruptions, warm and dry. Psychiatric: The mental examination revealed the patient was oriented to person , place, and time. The patient was able to demonstrate good judgment on recent , without hallucinations, abnormal affect or abnormal behaviors. Results Laboratory Results: 04/01/16 07/21/18 07/21/18 12:30 20:00 20:00 WBC 12.5 H RBC 3.95 Hgb 11.7 L Hct 35.6 L MCV 90 MCH 29.7 MCHC 33.0 RDW 14.0 Plt Count 186 Seg Neutrophils % 80.8 H Lymphocytes % 12.9 L Monocytes % 5.0 Eosinophils % 0.7 Basophils % 0.6 Absolute Neutrophils 10.1 H Absolute Lymphocytes 1.6 Absolute Monocytes 0.6 Absolute Eosinophils 0.1 Absolute Basophils 0.1 PT INR APTT Sodium 141.4 Potassium 4.0 Chloride 107 Carbon Dioxide 27 Anion Gap 7 BUN 20 Creatinine 0.88 Est GFR ( Amer) > 60 Est GFR (Non-Af Amer) > 60 Glucose 105 Calcium 8.9 Total Bilirubin 0.7 Direct Bilirubin 0.2 AST 33 ALT 15 Alkaline Phosphatase 67 Total Protein 6.6 Albumin 3.5 Urine Color YELLOW Urine Appearance CLOUDY Urine pH 5.0 Ur Specific [employer] 1.016 Urine Protein 100 H Urine Glucose (UA) NEGATIVE Urine Ketones NEGATIVE Urine Blood NEGATIVE Urine Nitrite NEGATIVE Urine Bilirubin NEGATIVE Urine Urobilinogen NEGATIVE Ur Leukocyte Esterase NEGATIVE Urine WBC (Auto) 2 Urine RBC (Auto) 2 Urine Bacteria (Auto) TRACE Ur Squamous Epith Cells 51 Urine Mucus (Auto) RARE Urine Ascorbic Acid 40 H 07/21/18 20:00 WBC RBC Hgb Hct MCV MCH MCHC RDW Plt Count Seg Neutrophils % Lymphocytes % Monocytes % Eosinophils % Basophils % Absolute Neutrophils Absolute Lymphocytes Absolute Monocytes Absolute Eosinophils Absolute Basophils PT 15.9 H INR 1.21 APTT 31.4 Sodium Potassium Chloride Carbon Dioxide Anion Gap BUN Creatinine Est GFR ( Amer) Est GFR (Non-Af Amer) Glucose Calcium Total Bilirubin Direct Bilirubin AST ALT Alkaline Phosphatase Total Protein Albumin Urine Color Urine Appearance Urine pH Ur Specific [employer] Urine Protein Urine Glucose (UA) Urine Ketones Urine Blood Urine Nitrite Urine Bilirubin Urine Urobilinogen Ur Leukocyte Esterase Urine WBC (Auto) Urine RBC (Auto) Urine Bacteria (Auto) Ur Squamous Epith Cells Urine Mucus (Auto) Urine Ascorbic Acid Impressions: Tibia/Fibula X-Ray 07/21/18 00:00 IMPRESSION: Comminuted fracture of the distal tibia and fracture of the proximal fibula. Chest X-Ray 07/21/18 19:51 IMPRESSION: Cardiomegaly. No pulmonary edema. Assessment & Plan - Diagnosis (1) Closed fracture of left tibia and fibula Qualifiers: Encounter type: initial encounter Qualified Code(s): S82.202A - Unspecified fracture of shaft of left tibia, initial encounter for closed fracture; S82.402A - Unspecified fracture of shaft of left fibula, initial encounter for closed fracture; S82.402A - Unspecified fracture of shaft of left fibula, initial encounter for closed fracture Is this a current diagnosis for this admission?: Yes Plan: As per orthopedic surgeon (2) Paroxysmal atrial fibrillation Is this a current diagnosis for this admission?: Yes Plan: Patient tells me he is in and out of atrial fibrillation all the time. We will will place on hold her aspirin as per possible surgery today, continue metoprolol. I do not have any information regarding her atrial fibrillation as is was diagnosed in [place] in 2013. I will ask cardiology for evaluation and cardiology clearance. We will repeat the EKG, but so far by the time I evaluated the patient she was in sinus rhythm with a heart rate in the 60s. (3) Diabetes mellitus type 2 in obese Is this a current diagnosis for this admission?: Yes Plan: Well controlled, last A1c 5.8. Metformin will be on hold, continue glimepiride. Accu-Cheks every 6 hours and the patient will be n.p.o. for surgery, insulin lispro sliding scale and hypoglycemia protocol. (4) Hypertension Qualifiers: Hypertension type: unspecified Qualified Code(s): I10 - Essential (primary ) hypertension Is this a current diagnosis for this admission?: Yes Plan: Continue with home antihypertensive medications, currently on metoprolol, lisinopril and amlodipine. - Time Time Spent: 30 to 50 Minutes
--- NOTE | 2018-07-22 07:15 | PDOC H&P ---
History of Present Illness Admission Date/PCP: 07/21/18 21:52 RAJ JUÁREZ MD History of Present Illness: BARBARA CROWLEY is a 72 year old female Patient is a 72-year-old white female known to me from her previous open reduction internal fixation of a left bimalleolar ankle fracture who has now fallen and broken just proximal to the articular surface. Past Medical History Cardiac Medical History: Reports: Atrial Fibrillation, Hyperlipidema, Hypertension Denies: Coronary Artery Disease, Myocardial Infarction Pulmonary Medical History: Denies: Asthma, Bronchitis, Chronic Obstructive Pulmonary Disease (COPD), Pneumonia Neurological Medical History: Denies: Seizures - VERTIGO Endocrine Medical History: Reports: Diabetes Mellitus Type 2 Malignancy Medical History: Reports: Breast Cancer - Status post left lumpectomy with radiation and chemotherapy GI Medical History: Denies: Hepatitis, Hiatal Hernia Musculoskeltal Medical History: Reports: Arthritis, Other - Morbid obesity Psychiatric Medical History: Denies: Depression Hematology: Denies: Anemia, Sickle Cell Disease Past Surgical History Past Surgical History: Reports: Mastectomy - LUMPECTOMY, Orthopedic Surgery - Multiple orthopedic surgery in the lower extremities with history of multip, Other - Left lumpectomy Cataract surgery Denies: Amputation, Hysterectomy, Pacemaker Social History Information Source: Patient, DrDillon Quesada, [facility] Records Lives with: Family Smoking Status: Never Smoker Frequency of Alcohol Use: None Hx Recreational Drug Use: No Drugs: None Hx Prescription Drug Abuse: No - Advance Directive Resuscitation Status: Full Code Family History Family History: Reviewed & Not Pertinent Parental Family History Reviewed: No Children Family History Reviewed: No Sibling(s) Family History Reviewed.: No Medication/Allergy Home Medications: Amlodipine Besylate 5 mg PO DAILY 04/01/16 Ascorbic Acid [Vitamin C 500 mg Tablet] 500 mg PO TID 04/01/16 Aspirin [Aspirin EC] 81 mg PO DAILY 04/01/16 Atorvastatin Calcium 20 mg PO DAILY 04/01/16 Calcium Carbonate [Calcium] 600 mg PO DAILY 04/01/16 Escitalopram Oxalate [Lexapro] 20 mg PO DAILY 04/01/16 Glimepiride 1 mg PO DAILY 04/01/16 Lisinopril 10 mg PO DAILY 04/01/16 Metformin HCl [Metformin HCl ER] 1,000 mg PO DAILY 04/01/16 Metoprolol Succinate 25 mg PO DAILY 04/01/16 Besifloxacin HCl [Besivance 0.6% Oph Susp 5 ml] 1 drop OP ASDIR 01/20/17 Cholecalciferol (Vitamin D3) [Vitamin D3] 1,000 unit PO DAILY 01/20/17 Difluprednate [Durezol] 1 drop OP ASDIR 01/20/17 Naproxen Sodium [Aleve] 220 mg PO ASDIR PRN 01/20/17 Nepafenac [Ilevro] 1 drop OP ASDIR 01/20/17 Allergies/Adverse Reactions: meclizine Adverse Reaction (Intermediate, Verified 02/19/17 09:05) Dizziness, VOMITING Review of Systems All systems: as per PMH Physical Exam Vital Signs: Temp Pulse Resp BP Pulse Ox 36.7 C 83 18 155/78 H 98 07/22/18 03:46 07/22/18 04:15 07/22/18 03:46 07/22/18 03:46 07/22/18 03:46 Intake & Output 07/21/18 07/22/18 07/23/18 06:59 06:59 06:59 Intake Total 1000 Balance 1000 Weight 123.8 kg Physical Exam: Middle-aged white female lying on hospital bed. Patient alert oriented and appropriate. Minimal apparent distress. General appearance: PRESENT: no acute distress, mild distress, obese Head exam: PRESENT: normocephalic Respiratory exam: PRESENT: unlabored Cardiovascular exam: PRESENT: RRR Vascular exam: PRESENT: normal capillary refill GI/Abdominal exam: PRESENT: soft Rectal exam: PRESENT: deferred Extremities exam: PRESENT: other - Left lower extremity immobilized in a posterior splint. There is brisk capillary refill distally. There is a significant hallux valgus deformity. Sensory examination is intact to light touch. Neurological exam: PRESENT: alert, awake, oriented to person, oriented to place , oriented to time, oriented to situation. ABSENT: motor sensory deficit Psychiatric exam: PRESENT: appropriate affect, normal mood. ABSENT: homicidal ideation, suicidal ideation Skin exam: PRESENT: dry, intact, warm. ABSENT: cyanosis, rash Results Impressions: Tibia/Fibula X-Ray 07/21/18 00:00 IMPRESSION: Comminuted fracture of the distal tibia and fracture of the proximal fibula. Chest X-Ray 07/21/18 19:51 IMPRESSION: Cardiomegaly. No pulmonary edema. Status: Imported from PACS Assessment & Plan - Diagnosis (1) Closed fracture of left tibia and fibula Qualifiers: Encounter type: initial encounter Qualified Code(s): S82.202A - Unspecified fracture of shaft of left tibia, initial encounter for closed fracture; S82.402A - Unspecified fracture of shaft of left fibula, initial encounter for closed fracture; S82.402A - Unspecified fracture of shaft of left fibula, initial encounter for closed fracture Is this a current diagnosis for this admission?: Yes Plan: 72-year-old white female status post ORIF of a left bimalleolar ankle fracture in the past and now with a superimposed distal third fracture of the tibia that extends proximally to the proximal fibula. This is consistent with a Bert new fracture. This raises the concern for potential compartment syndrome. The hospitalist service has been consulted and because of a history of arrhythmia, a cardiac consult has been requested for surgical clearance. At this point the patient's options are twofold. One is that the fracture could be treated in a cast and allowed to heal in situ. This would avoid the usual perioperative risks. The second option would be for an open reduction internal fixation. Tentatively this would involve removal of the medial malleolar screws and insertion of an intramedullary nail. - Time Time Spent: 50 to 70 Minutes Anticipated discharge: SNF Within: Other
--- NOTE | 2018-07-22 07:44 | EKG REPORT ---
SEVERITY:- ABNORMAL ECG - SINUS RHYTHM VENTRICULAR BIGEMINY FIRST DEGREE AV BLOCK DIFFUSE NONSPECIFIC ST-T CHANGES : Confirmed by: Terrell Chandler MD 22-Jul-2018 07:44:24
--- NOTE | 2018-07-22 07:47 | EKG REPORT ---
SEVERITY:- DEFECTIVE ECG - NSR 50. WITH FIRST DEGREE AVB. LOW VOLTAGE PRECORDIAL LEADS, SEVERE BASELINE TREMORS : Confirmed by: Terrell Chandler MD 22-Jul-2018 07:46:51
--- NOTE | 2018-07-22 08:33 | RADIOLOGY REPORT (SQ) ---
EXAM DESCRIPTION: CHEST SINGLE VIEW COMPLETED DATE/TIME: 07/22/2018 8:24 am REASON FOR STUDY: PRE OP COMPARISON: 07/21/2018 EXAM PARAMETERS: NUMBER OF VIEWS: One view. TECHNIQUE: Single frontal radiographic view of the chest acquired. RADIATION DOSE: NA LIMITATIONS: None. FINDINGS: LUNGS AND PLEURA: No opacities, masses or pneumothorax. No pleural effusion. MEDIASTINUM AND HILAR STRUCTURES: No masses. Contour normal. HEART AND VASCULAR STRUCTURES: Stable heart size. Normal vasculature. BONES: No acute findings. HARDWARE: Left axillary clips. OTHER: No other significant finding. IMPRESSION: NO ACUTE RADIOGRAPHIC FINDING IN THE CHEST. TECHNICAL DOCUMENTATION: JOB ID: [id number] [employer]- All Rights Reserved Reading location - IP/workstation name: [facility]-RR
[2018-07-22 08:38] LABS: HEMATOCRIT 34.3 % (36.0-47.0); HEMOGLOBIN 11.2 g/dL (12.0-15.5); MEAN CORPUSCULAR HEMOGLOBIN 29.1 pg (27.0-33.4); MEAN CORPUSCULAR HGB CONC 32.5 g/dL (32.0-36.0); MEAN CORPUSCULAR VOLUME 90 fl (80-97); PLATELET COUNT 185 10^3/uL (150-450); RED BLOOD COUNT 3.83 10^6/uL (3.72-5.28); RED CELL DISTRIBUTION WIDTH 14.1 % (11.5-14.0); WHITE BLOOD COUNT 12.7 10^3/uL (4.0-10.5)
[2018-07-22 09:03] LABS: ANION GAP 8 (5-19); BLOOD UREA NITROGEN 19 mg/dL (7-20); CALCIUM 8.6 mg/dL (8.4-10.2); CARBON DIOXIDE 26 mmol/L (22-30); CHLORIDE 107 mmol/L (98-107); GLUCOSE 142 mg/dL (75-110); POTASSIUM 4.1 mmol/L (3.6-5.0); SODIUM 140.7 mmol/L (137-145)
[2018-07-22 09:17] LABS: PROTHROMBIN TIME 14.8 SEC (11.4-15.4)
[2018-07-22] MEDS: ASPIRIN 81 MG TABLET, ENT COATED PO SCH (12:15)
[2018-07-22] MEDS: CHOLECALCIFEROL (D3) 1,000 UNIT TABLET PO SCH (12:15)
[2018-07-22] MEDS: CALCIUM CARBONATE 500 MG TABLET PO SCH (12:16)
[2018-07-22] MEDS: ESCITALOPRAM OXALATE 10 MG TABLET PO SCH (12:16)
[2018-07-22] MEDS: LISINOPRIL 10 MG TABLET PO SCH (12:16)
[2018-07-22] MEDS: AMLODIPINE BESYLATE 5 MG TABLET PO SCH (12:16)
[2018-07-22] MEDS: ATORVASTATIN CALCIUM 20 MG TABLET PO SCH (12:16)
[2018-07-22] MEDS: INSULIN LISPRO 100 UNIT/ML 3 ML VIAL SUBCUT PRN (12:29)
[2018-07-22] MEDS ORDERED: METOPROLOL TARTRATE 25 MG TABLET PO SCH (13:00)
--- NOTE | 2018-07-22 16:56 | Progress Note ---
Provider Note Provider Note: 72 y.o. M status post ORIF of a left bimalleolar ankle fracture in the past [facility], now with a superimposed distal third fracture of the tibia that extends proximally to the proximal fibula. Hospitalist service was consulted for management of DM 2, HTN and paroxysmal A. fib. Cardiology has been consulted for cardiac clearance prior to tomorrow surgery. 1. Tib/Fib fracture: plan per ortho 2. DM2: check HgbA1c in AM. Accu-Cheks before meals at bedtime. Humalog sliding scale insulin. Hold home dose metformin 3. HTN: Continue home dose lisinopril and Norvasc. IV hydralazine as needed for SBP >180 4. Paroxysmal A. fib: Patient reports remote history of PAF. No history of OR or heart failure. Current EKG demonstrates first-degree heart block. Spoke with Dr. Alexander, no plan for echocardiogram or stress test prior to surgery. Patient is cleared for surgery.
--- NOTE | 2018-07-22 21:24 | PDOC CONSULTATION ---
Consultation-Blank Consultation: CARDIOLOGY CONSULTATION by Dr. Opal Alexander on 07/22/2018. Reason for consultation: Patient with a history of hypertension and history of arrhythmia, as per patient, for preoperative cardiac risk assessment, for left leg orthopedic surgery. Patient seen at 12 noon on 07/22/2018. 60 minutes spent on this patient, with more than 50% of time spent in direct patient care. DISPOSITION: The patient is a full code. Her is a surrogate healthcare decision maker. History Of Present Illness: Patient is a morbidly obese 72-year-old female with known history of hypertension, diabetes mellitus type 2 non-insulin- dependent, who was admitted with accidental fall and has fracture of the left lower leg and ankle. She is for surgical report of the same. The patient gives a history of being told that she has a irregular heart rate, but has not been diagnosed with atrial fibrillation or any atrial tachycardia, or any major ventricular arrhythmia. There is no history of sudden . The patient had an accidental fall there was no dizziness near syncope or syncope. There is no palpitations. The patient has no chest pain or discomfort. There is no PND orthopnea. There is no leg edema. The patient denies any dizziness. Past Medical History: She has history of diabetes mellitus type 2 non-insulin- dependent, history of hypertension, and history of hyperlipidemia. She also has a past history of breast cancer which she states is cured. There is no history of asthma COPD. There is no history of coronary artery disease, DE or anginal symptoms. She states her last stress test was 5 years ago in [place], and was told it was normal. She states she was told that she has irregular heartbeat, although she denies any palpitations. On looking at the EKG the patient does have PVCs, hence this is probably what the reason she was told that she has a irregular heart rate. There is no diagnosis of atrial fibrillation or any other atrial arrhythmia. There is no sudden . There is no dizziness syncope. There is no history of congestive heart failure. There is no PND orthopnea. There is no history of thyroid disease. There is no history of TIA or CVA. There is no history of sleep apnea. There is no history of pulmonary embolism. There is no history of chronic kidney disease. There is no history of asthma or COPD. She in the past has had vertigo, which was relieved with meclizine. But the patient states she became allergic to meclizine, etiology unknown. But she has not had vertigo in many years. Vertigo did not cause the patient to have an accidental fall this time. Past Surgical History: She has had a lumpectomy in the left breast for cancer of the breast, which she states is been cured. She also states she has had left ankle/left leg surgery. FAMILY HISTORY: Denies history of coronary artery disease or sudden in the family. History of hypertension present. ALLERGIES: She is allergic to meclizine. REVIEW OF SYMPTOMS: Head: No history of headaches or head injury. CONSTITUTIONAL: NO HISTORY OF FEVER CHILLS OR RIGORS. DENIES FATIGUE OR GENERALIZED WEAKNESS. Eyes: No history of amblyopia diplopia. No history of amaurosis fugax. EARS: Past history of vertigo, none in several years. No history of tinnitus. No history of hearing loss. No history of recurrent ear infections. NOSE: No history of hayfever. No history of nosebleeds. MOUTH: No history of altered taste sensation. No ulcers in the mouth. No bleeding from the gums. THROAT: No history of odynophagia or dysphagia. No recurrent sore throats. SKIN: No history of pruritus. No history of yellowish discoloration of the skin. NECK: No history of neck pain. No history of neck swelling. No history of goiter. LUNGS: No history of asthma COPD. No history of wheezing. No history of recent cough or sputum production. No symptoms of upper or lower respiratory tract infection. No history of wheezing. No history of sleep apnea. No history of pulmonary embolism. No history of pleuritic chest pain. No history of hemoptysis. CARDIAC: History of irregular heartbeat as mentioned earlier. Note that the patient's EKG shows a significant first-degree AV block and PVCs, with sinus bradycardia. This probably secondary to patient beta-saima which have stopped. History of hypertension present no history of coronary artery disease DE or anginal symptoms. Patient denies any history of congestive heart failure. No history of PND orthopnea palpitations syncope near syncope or sudden . No leg edema. GI: No history of abdominal pain. No history of altered bowel movements. No history of fatty food intolerance. No history of GI bleed. No history of hepatitis. No history of jaundice. RENAL: No history of chronic kidney disease. No history of symptoms or UTI. No history of hematuria pyuria or dysuria. MUSCULOSKELETAL: History of arthritis present. History of fractures of the left leg as mentioned earlier, and patient with recent fracture after fall. No history of collagen vascular disease. ENDOCRINE: History of diabetes mellitus type 2 [id number]. No history of polydipsia polyuria. No history of thyroid disorder. No history of heat or cold intolerance. No hirsutism. No excessive swelling. METABOLIC: Patient is morbidly obese. There is no history of gout. The patient does have a history of hyperlipidemia. TRAVEL NURSE: No history of TIA or CVA. No history of headaches migraines or seizures. PSYCHIATRIC: No history of homicidal or suicidal ideation. No history of anxiety or depression. VASCULAR: No history of calf or buttock claudication. No history of DVT. Hematological: Past history of anemia. No history of bleeding diathesis. No history of clotting disorders. PHYSICAL EXAMINATION: The patient is morbidly obese. In no acute distress. Her pain is well controlled on the current medication. She is well-groomed. Selected Entries 07/22/18 07/22/18 10:00 11:19 Temperature 99.8 F Pulse Rate 77 Respiratory 18 Rate Blood Pressure 136/47 H Blood Pressure 76 Mean O2 Sat by Pulse 93 Oximetry Oxygen Delivery Room Air Method ( includes room air) HEAD: Is atraumatic normocephalic. EYES: Pupils are equal round regular reactive to light accommodation. Extraocular movements are normal. There is no conjunctival pallor. There is no scleral icterus. EARS: Tympanic membranes are intact. External auditory canals are clear. NOSE: There is no deviated nasal septum. There is no inflammation of the nasal mucous membrane. There is no nasal polyps. MOUTH: Mucous membrane of the mouth are moist tongue is moist. There is no ulcers. There is no bleeding from the gums. THROAT: There is no redness of the oropharynx. There is no exudates. SKIN: There is no petechia or ecchymosis. There is no skin lesions or skin rashes. NECK: Is supple. There is no JVD. Carotids are equal there is no bruit. There is no lymphadenopathy. There is no goiter. There is no accessory muscle respiration use. Trachea central. LUNGS: Is clear to auscultation percussion, without any rhonchi rales or wheezing. There is no chest wall tenderness. HEART S1-S2 is heard there is no S3 gallop there is no S4 gallop. There is a systolic murmur in the left sternal border and the apex. Clinical exam shows no murmur of aortic stenosis or aortic regurgitation or mitral stenosis or mitral regurgitation. There is no rub. ABDOMEN: Is obese. Nontender. There is no hepatosplenomegaly. All sounds well heard. EXTREMITIES: Femorals are deep. Femorals are diminished. There is no femoral bruits. Leg pulses are well felt. There is no pedal edema. There is no DVT or cellulitis. There is no cyanosis or clubbing. There is no calf tenderness. Capillary refill is normal bilaterally. TRAVEL NURSE: The patient is conscious awake alert oriented x3 with no focal deficit. PSYCHIATRIC: The patient judgment and insight are intact. Affect is normal. 07/22/18 07/22/18 07/22/18 08:20 08:20 08:20 WBC 12.7 H Hgb 11.2 L Hct 34.3 L Plt Count 185 PT 14.8 INR 1.10 APTT 32.0 Sodium 140.7 Potassium 4.1 Chloride 107 Carbon Dioxide 26 BUN 19 Creatinine 0.77 Est GFR (Non-Af Amer) > 60 Glucose 142 H Calcium 8.6 07/22/18 00:55 Dextrose 50%-Water [Dextrose Inj 50% Syringe (25 gm/50 ml)] 12.5 gm IV PRN PRN Dextrose 50%-Water [Dextrose Inj 50% Syringe (25 gm/50 ml)] 25 gm IV PRN PRN Dextrose [Glutose 40% Gel 15 gm Tube] 15 gm PO PRN PRN Dextrose [Glutose 40% Gel 15 gm Tube] 30 gm PO PRN PRN Glucagon,Human Recombinant [Glucagen Inj 1 mg Vial] 1 mg IM PRN PRN Insulin Lispro [Humalog Insulin 100 Unit/1 ml 3 ml Vial] 0 - 12 unit SUBCUT Q6HP PRN 07/22/18 00:56 Hydralazine HCl [Apresoline Inj/Pf 20 mg/1 ml Sdv] 10 mg IV Q6HP PRN 07/22/18 07:42 Morphine Sulfate [Morphine 10 mg/ml Inj] 2 mg IV Q2HP PRN Oxycodone HCl [Oxy-Ir 5 mg Tablet] 5 mg PO Q6HP PRN 07/22/18 13:00 Amlodipine Besylate [Norvasc 5 mg Tablet] 5 mg PO DAILY Aspirin [Ecotrin 81 mg EC Tablet] 81 mg PO DAILY Atorvastatin Calcium [Lipitor 20 mg Tablet] 20 mg PO DAILY Calcium Carbonate [Os-Aditya 500 mg Tablet (Oyster-Shell)] 500 mg PO DAILY Cholecalciferol (Vitamin D3) [Vitamin D3 1000 Unit Tablet] 1,000 unit PO DAILY Escitalopram Oxalate [Lexapro 10 mg Tablet] 20 mg PO DAILY Lisinopril [Prinivil 10 mg Tablet] 10 mg PO DAILY 07/23/18 00:00 Ringers Solution,Lactated [Lactated Ringers 1000 ml IV Soln] 1,000 ml IV CONTINUOUS Her EKG: Shows sinus bradycardia. Significant first-degree AV block. Nonspecific nondiagnostic mild ST depression diffusely. Ventricular bigeminy. IMPRESSION/RECOMMENDATION: 1. Status post accidental fall and fracture of the left lower leg and left ankle. For surgical repair of the same. 2. Hypertension: Well controlled. 3. Diabetes mellitus: Continue antidiabetic medication, and monitor blood sugar. 4. Hyperlipidemia: Continue current therapy. 5 Abnormal EKG: Shows significant first-degree AV block and PVCs. Would recommend stopping beta blockers, which have already done. Recheck the patient' s EKG in about 48 hours. Would monitor the patient to see if there is any major ventricular ectopy. Patient at low risk for sudden . 6. Morbid Obesity: Later, after she recovers from her current surgery, who recommended the patient have a diet and exercise program to lose weight. 7. Pre-Operative Cardiac Risk Assessment: THE patient clinically has no coronary artery disease by history. Also by exam she has no congestive heart failure or significant valvular disease. The patient does have some PVCs on her EKG, but she is at very low risk for sudden . HENCE THE PATIENT WILL BE AND ACCEPTABLE/MILD CARDIAC RISK FOR THIS SURGERY, UNDER GENERAL, OR SPINAL ANESTHESIA. PREOPERATIVELY/INTRAOPERATIVELY/and POSTOPERATIVELY WOULD RECOMMEND MONITORING PATIENT'S HEART RHYTHM ON TELEMETRY. Medications reviewed. Management plan discussed with other caregiving providers on the case.. Medical decision making is of moderate to high complexity. Note 60 minutes spent on this patient more than 50% of time spent in direct patient care. We will follow with you. Thanking you for allowing me to participate in the care of this patient. Note that the patient does not have a local wind turbine technician, since he moved here to live from [place]. Patient desires, as also her , to follow-up with me with me as a wind turbine technician. Will make arrangements for the patient to be seen in the office, when she gets discharged.
[2018-07-23] MEDS: RINGERS SOLUTION,LACTATED 1,000 ML IV PRN ×3 (00:06→16:04)
[2018-07-23 09:57] LABS: ALANINE AMINOTRANSFERASE 12 U/L (9-52); ALBUMIN 2.7 g/dL (3.5-5.0); ALKALINE PHOSPHATASE 51 U/L (38-126); ANION GAP 10 (5-19); ASPARTATE AMINO TRANSFERASE 13 U/L (14-36); BILIRUBIN,DIRECT 0.2 mg/dL (0.0-0.4); BLOOD UREA NITROGEN 21 mg/dL (7-20); CALCIUM 8.6 mg/dL (8.4-10.2); CARBON DIOXIDE 25 mmol/L (22-30); CHLORIDE 105 mmol/L (98-107); GLUCOSE 113 mg/dL (75-110); POTASSIUM 3.8 mmol/L (3.6-5.0); SODIUM 139.7 mmol/L (137-145); TOTAL PROTEIN 5.3 g/dL (6.3-8.2)
[2018-07-23] MEDS ORDERED: (PENDING PHARMACY ID) (Calcium Carbonate [Calcium] 600 MG) PO SCH (10:00)
[2018-07-23] MEDS ORDERED: (PENDING PHARMACY ID) (Cholecalciferol (Vitamin D3) [Vitamin D3] 1,000 UNIT) PO SCH (10:00)
[2018-07-23 10:04] LABS: HEMATOCRIT 29.9 % (36.0-47.0); HEMOGLOBIN 9.9 g/dL (12.0-15.5); MEAN CORPUSCULAR HEMOGLOBIN 29.6 pg (27.0-33.4); MEAN CORPUSCULAR VOLUME 90 fl (80-97); PLATELET COUNT 124 10^3/uL (150-450); RED BLOOD COUNT 3.33 10^6/uL (3.72-5.28); RED CELL DISTRIBUTION WIDTH 13.9 % (11.5-14.0)
[2018-07-23] MEDS ORDERED: CEFAZOLIN INJ 1 GM VIAL ONE ×2 (10:18→10:51)
[2018-07-23] MEDS: AMLODIPINE BESYLATE 5 MG TABLET PO SCH (10:27)
[2018-07-23] MEDS: LISINOPRIL 10 MG TABLET PO SCH (10:27)
[2018-07-23] MEDS ORDERED: LIDOCAINE 1% INJ-PF (10 MG/ML) 30 ML SDV ONE (10:43)
[2018-07-23] MEDS ORDERED: BUPIVACAINE HCL 0.25% /EPINEPHRINE INJ/PF 30 ML SDV ONE (10:43)
[2018-07-23] MEDS ORDERED: ONDANSETRON HCL INJ/PF 4 MG/2 ML SDV ONE (10:45)
[2018-07-23] MEDS ORDERED: PROPOFOL INJ 200 MG/20 ML VIAL IV ONE (10:45)
[2018-07-23] MEDS ORDERED: ACETAMINOPHEN 1,000 MG/100 ML RTUPB IV ONE (10:45)
[2018-07-23] MEDS ORDERED: DEXAMETHASONE SOD PHOSPHATE INJ 4 MG/1 ML VIAL ONE (10:45)
[2018-07-23] MEDS ORDERED: MIDAZOLAM 2 MG/2 ML INJ ONE (10:45)
[2018-07-23] MEDS ORDERED: FENTANYL CITRATE INJ/PF 100 MCG/2 ML AMPUL ONE (10:45)
[2018-07-23] MEDS ORDERED: DIPHENHYDRAMINE HCL 50 MG/ML VIAL IV PRN (11:23)
[2018-07-23] MEDS ORDERED: MORPHINE SULFATE 10 MG/ML INJ IV PRN (11:23)
[2018-07-23] MEDS ORDERED: ONDANSETRON HCL INJ/PF 4 MG/2 ML SDV IV PRN (11:23)
[2018-07-23] MEDS ORDERED: OXYCODONE-ACETAMINOPHEN 5-325 MG TABLET PO PRN ×2 (11:23)
[2018-07-23] MEDS ORDERED: FENTANYL CITRATE INJ/PF 100 MCG/2 ML AMPUL IV PRN ×3 (11:23)
[2018-07-23] MEDS ORDERED: PROMETHAZINE HCL INJ 25 MG/1 ML VIAL IV PRN ×2 (11:23)
[2018-07-23] MEDS ORDERED: MEPERIDINE HCL/PF INJ 25 MG/1 ML DISP.SYRIN IV PRN (11:23)
--- NOTE | 2018-07-23 12:02 | Operative Report ---
Operative Report DATE OF SURGERY: 07/23/18 PREOPERATIVE DIAGNOSIS: Left distal tibia fracture, Bert new variant OPERATION: Open reduction internal fixation left tibia fracture SURGEON: MADIE HAMLIN ANESTHESIA: GA ESTIMATED BLOOD LOSS: 150 PROCEDURE: With the patient supine on the operative table left lower extremities prepped and draped in a sterile fashion. The limb is elevated for exsanguination tourniquet inflated 280 torr. A medial parapatellar incision was made to give access to the tibial plateau. A guidepin is placed in a central portion AP plane with slight posterior trajectory in a lateral plane. A combined reamer was then used to fashion a cortical opening. All this hardware was removed. A ball-tipped guide rods placed down the tibia. Tibial length is measured to be between 330 and 315 mm. The tibial canal is then reamed with flexible reamers until he 11 mm reamer is passed. Subsequently a Sigrid titanium tibial nail 10 mm x 315 mm is passed over the ball-tipped guide daquan to a depth just proximal to the sub-articular surface distally. A single proximal interlock is placed. 3 distal interlocks were placed. The fracture alignment, hardware placement are check fluoroscopically and felt to be adequate. At this point the tourniquet is deflated. Hemostasis obtained with electrocautery. The wounds irrigated with bulb lavage. The subsequent closed in layers interrupted Vicryl followed by danny. A sterile compressive dressing is applied and the patient's return to the PACU in satisfactory condition.
[2018-07-23] MEDS ORDERED: TRANEXAMIC ACID INJ/PF 1,000 MG/10 ML SDV IV ONE (12:19)
--- NOTE | 2018-07-23 13:35 | RADIOLOGY REPORT (SQ) ---
EXAM DESCRIPTION: NO CHG FLUORO; TIBIA FIBULA LEFT COMPLETED DATE/TIME: 07/23/2018 1:22 pm REASON FOR STUDY: ORIF LEFT TIB/FIB ASST W/ FLUORO IN OR COMPARISON: None. FLUOROSCOPY TIME: 1.7 minutes 7 images saved to PACS. TECHNIQUE: Intra-operative images acquired during surgical procedure to evaluate progress. NUMBER OF IMAGES: 7 LIMITATIONS: None. FINDINGS: Selected images from daquan and interlocking screw fixation of distal tibial fracture. Align ment is anatomic. IMPRESSION: IMAGE(S) OBTAINED DURING PROCEDURE. COMMENT: Quality ID 145: Final reports for procedures using fluoroscopy that document radiation exp osure indices, or exposure time and number of fluorographic images (if radiation exposure indices are not available) Please consult full operative report of the attending physician for description of the procedure. TECHNICAL DOCUMENTATION: JOB ID: [id number] [employer]- All Rights Reserved Reading location - IP/workstation name: [email or web address]
--- NOTE | 2018-07-23 13:35 | RADIOLOGY REPORT (SQ) ---
EXAM DESCRIPTION: NO CHG FLUORO; TIBIA FIBULA LEFT COMPLETED DATE/TIME: 07/23/2018 1:22 pm REASON FOR STUDY: ORIF LEFT TIB/FIB ASST W/ FLUORO IN OR COMPARISON: None. FLUOROSCOPY TIME: 1.7 minutes 7 images saved to PACS. TECHNIQUE: Intra-operative images acquired during surgical procedure to evaluate progress. NUMBER OF IMAGES: 7 LIMITATIONS: None. FINDINGS: Selected images from daquan and interlocking screw fixation of distal tibial fracture. Align ment is anatomic. IMPRESSION: IMAGE(S) OBTAINED DURING PROCEDURE. COMMENT: Quality ID 145: Final reports for procedures using fluoroscopy that document radiation exp osure indices, or exposure time and number of fluorographic images (if radiation exposure indices are not available) Please consult full operative report of the attending physician for description of the procedure. TECHNICAL DOCUMENTATION: JOB ID: [id number] [employer]- All Rights Reserved Reading location - IP/workstation name: [email or web address]
[2018-07-23] MEDS: CALCIUM CARBONATE 500 MG TABLET PO SCH (13:44)
[2018-07-23] MEDS: ATORVASTATIN CALCIUM 20 MG TABLET PO SCH (13:44)
[2018-07-23] MEDS: CHOLECALCIFEROL (D3) 1,000 UNIT TABLET PO SCH (13:45)
[2018-07-23] MEDS: ESCITALOPRAM OXALATE 10 MG TABLET PO SCH (13:45)
[2018-07-23] MEDS: ASPIRIN 81 MG TABLET, ENT COATED PO SCH (13:45)
[2018-07-23] MEDS ORDERED: PHENYLEPHRINE HCL INJ/PF 10 MG/1 ML SDV ONE (16:02)
[2018-07-23] MEDS ORDERED: SUCCINYLCHOLINE CHLORIDE INJ 200 MG/10 ML VIAL ONE (16:02)
--- NOTE | 2018-07-23 16:40 | PDOC PROGRESS REPORT ---
Subjective Progress Note for:: 07/23/18 Subjective:: 72 y.o. M status post ORIF of a left bimalleolar ankle fracture in the past presented [facility] following a fall, now with a superimposed distal third fracture of the tibia that extends proximally to the proximal fibula. Hospitalist service was consulted for management of DM 2, HTN and paroxysmal A. fib. Cardiology has been consulted for cardiac clearance prior to tomorrow surgery. Plan for OR today with Dr. Boone for ORIF L tibial fracture. Reason For Visit: CLOSED FRACTURE OF LEFT TIBIA AND FIBULA Physical Exam Vital Signs: Temp Pulse Resp BP Pulse Ox 98.7 F 84 20 134/46 H 97 07/23/18 13:10 07/23/18 13:15 07/23/18 13:15 07/23/18 13:15 07/23/18 13:15 Intake & Output 07/22/18 07/23/18 07/24/18 06:59 06:59 06:59 Intake Total 1000 1479 1960 Output Total 110 Balance 1000 1479 1850 Weight 123.8 kg 123.8 kg General appearance: PRESENT: no acute distress, well-developed, well-nourished Head exam: PRESENT: atraumatic, normocephalic Eye exam: PRESENT: conjunctiva pink, EOMI, PERRLA. ABSENT: scleral icterus Ear exam: PRESENT: normal external ear exam Mouth exam: PRESENT: moist, tongue midline Neck exam: ABSENT: carotid bruit, JVD, lymphadenopathy, thyromegaly Respiratory exam: PRESENT: clear to auscultation hussein. ABSENT: rales, rhonchi, wheezes Cardiovascular exam: PRESENT: RRR. ABSENT: diastolic murmur, rubs, systolic murmur Pulses: PRESENT: normal dorsalis pedis pul Vascular exam: PRESENT: normal capillary refill GI/Abdominal exam: PRESENT: normal bowel sounds, soft. ABSENT: distended, guarding, mass, organolmegaly, rebound, tenderness Rectal exam: PRESENT: deferred Extremities exam: ABSENT: calf tenderness, clubbing, full ROM - limited ROM of LLE below the knee, pedal edema Musculoskeletal exam: PRESENT: deformity - LLE. ABSENT: ambulatory, full ROM, normal inspection Neurological exam: PRESENT: alert, awake, oriented to person, oriented to place , oriented to time, oriented to situation Psychiatric exam: PRESENT: appropriate affect, normal mood Skin exam: PRESENT: dry, intact, warm. ABSENT: cyanosis, rash Results Laboratory Results: 07/23/18 04:53 07/23/18 04:53 07/23/18 07/23/18 04:53 04:53 WBC 11.0 H RBC 3.33 L Hgb 9.9 L Hct 29.9 L MCV 90 MCH 29.6 MCHC 33.0 RDW 13.9 Plt Count 124 L Sodium 139.7 Potassium 3.8 Chloride 105 Carbon Dioxide 25 Anion Gap 10 BUN 21 H Creatinine 0.94 Est GFR ( Amer) > 60 Est GFR (Non-Af Amer) 58 L Glucose 113 H Calcium 8.6 Total Bilirubin 1.0 AST 13 L ALT 12 Alkaline Phosphatase 51 Total Protein 5.3 L Albumin 2.7 L Impressions: Chest X-Ray 07/22/18 00:00 IMPRESSION: NO ACUTE RADIOGRAPHIC FINDING IN THE CHEST. Fluoroscopy 07/23/18 00:00 IMPRESSION: IMAGE(S) OBTAINED DURING PROCEDURE. Tibia/Fibula X-Ray 07/23/18 00:00 IMPRESSION: IMAGE(S) OBTAINED DURING PROCEDURE. Status: Imported from PACS Assessment & Plan - Diagnosis (1) Closed fracture of left tibia and fibula Qualifiers: Encounter type: initial encounter Qualified Code(s): S82.202A - Unspecified fracture of shaft of left tibia, initial encounter for closed fracture; S82.402A - Unspecified fracture of shaft of left fibula, initial encounter for closed fracture; S82.402A - Unspecified fracture of shaft of left fibula, initial encounter for closed fracture Is this a current diagnosis for this admission?: Yes Plan: Management per ortho (2) Diabetes mellitus type 2 in obese Is this a current diagnosis for this admission?: Yes Plan: HgbA1c 5.9 Accu-Cheks before meals at bedtime. Humalog sliding scale insulin. Hold home dose metformin (3) Hypertension Qualifiers: Hypertension type: unspecified Qualified Code(s): I10 - Essential (primary ) hypertension Is this a current diagnosis for this admission?: Yes Plan: Continue home dose lisinopril and Norvasc. IV hydralazine as needed for SBP >180 (4) Paroxysmal atrial fibrillation Is this a current diagnosis for this admission?: Yes Plan: Patient reports remote history of PAF. No history of NC or heart failure. Current EKG demonstrates first-degree heart block. Spoke with Dr. Alexander, no plan for echocardiogram or stress test prior to surgery. Patient is cleared for surgery. - Time Time Spent with patient: Less than 15 minutes Medications reviewed and adjusted accordingly: Yes Anticipated discharge: Acute Rehab Within: within 48 hours - Inpatient Certification Based on my medical assessment, after consideration of the patient's comorbidities, presenting symptoms, or acuity I expect that the services needed warrant INPATIENT care.: Yes I certify that my determination is in accordance with my understanding of Medicare's requirements for reasonable and necessary INPATIENT services [42 CFR 412.3e].: Yes Medical Necessity: Need for Surgery - Plan Summary Plan Summary: OR TODAY FOR ORIF L TIBIAL FRACTURE. DM AND HTN WELL CONTROLLED
[2018-07-23] MEDS: CEFAZOLIN 2 GM/D5W RTU 2 GM/50 ML RTUPB IV SCH (17:14)
[2018-07-23] MEDS: OXYCODONE HCL IR 5 MG TABLET PO PRN (18:35)
[2018-07-23] MEDS: INSULIN LISPRO 100 UNIT/ML 3 ML VIAL SUBCUT PRN ×2 (18:36→22:58)
[2018-07-23] MEDS: MORPHINE SULFATE 10 MG/ML INJ IV PRN (20:18)
--- NOTE | 2018-07-23 21:38 | Progress Note ---
Provider Note Provider Note: Patient was in the operating room. Hence patient not seen today there is 2017. See the patient tomorrow that is 07/24/2018. Thanking you.
[2018-07-24] MEDS: RINGERS SOLUTION,LACTATED 1,000 ML IV PRN (03:24)
[2018-07-24] MEDS: CEFAZOLIN 2 GM/D5W RTU 2 GM/50 ML RTUPB IV SCH (03:24)
[2018-07-24 05:44] LABS: HEMATOCRIT 27.4 % (36.0-47.0); HEMOGLOBIN 8.9 g/dL (12.0-15.5); MEAN CORPUSCULAR HEMOGLOBIN 29.6 pg (27.0-33.4); MEAN CORPUSCULAR HGB CONC 32.5 g/dL (32.0-36.0); MEAN CORPUSCULAR VOLUME 91 fl (80-97); PLATELET COUNT 160 10^3/uL (150-450); RED BLOOD COUNT 3.01 10^6/uL (3.72-5.28); RED CELL DISTRIBUTION WIDTH 13.8 % (11.5-14.0); WHITE BLOOD COUNT 12.9 10^3/uL (4.0-10.5)
[2018-07-24 06:03] LABS: ANION GAP 10 (5-19); BLOOD UREA NITROGEN 22 mg/dL (7-20); CALCIUM 8.5 mg/dL (8.4-10.2); CARBON DIOXIDE 27 mmol/L (22-30); CHLORIDE 103 mmol/L (98-107); GLUCOSE 188 mg/dL (75-110); POTASSIUM 4.2 mmol/L (3.6-5.0); SODIUM 139.7 mmol/L (137-145)
[2018-07-24] MEDS: INSULIN LISPRO 100 UNIT/ML 3 ML VIAL SUBCUT PRN ×4 (07:46→22:51)
[2018-07-24] MEDS: ATORVASTATIN CALCIUM 20 MG TABLET PO SCH (09:54)
[2018-07-24] MEDS: ASPIRIN 81 MG TABLET, ENT COATED PO SCH (09:54)
[2018-07-24] MEDS: AMLODIPINE BESYLATE 5 MG TABLET PO SCH (09:54)
[2018-07-24] MEDS: CALCIUM CARBONATE 500 MG TABLET PO SCH (09:54)
[2018-07-24] MEDS: ESCITALOPRAM OXALATE 10 MG TABLET PO SCH (09:54)
[2018-07-24] MEDS: LISINOPRIL 10 MG TABLET PO SCH (09:54)
[2018-07-24] MEDS: CHOLECALCIFEROL (D3) 1,000 UNIT TABLET PO SCH (09:55)
--- NOTE | 2018-07-24 13:30 | PDOC PROGRESS REPORT ---
Subjective Progress Note for:: 07/24/18 Subjective:: Patient resting in bed. Pain well controlled. No issues overnight. Reason For Visit: CLOSED FRACTURE OF LEFT TIBIA AND FIBULA Physical Exam Vital Signs: Temp Pulse Resp BP Pulse Ox 36.8 C 72 16 128/65 H 98 07/24/18 11:04 07/24/18 11:04 07/24/18 11:04 07/24/18 11:04 07/24/18 11:04 Intake & Output 07/23/18 07/24/18 07/25/18 06:59 06:59 06:59 Intake Total 1479 4080 1000 Output Total 260 Balance 1479 3820 1000 Weight 123.8 kg 120.3 kg Adult Front & Back Image: 1 - Dressing is dry clean and intact. Intact EHL and FHL and tibialis anterior. Good sensation to light touch with good capillary refill Results Laboratory Results: 07/24/18 04:13 07/24/18 04:13 07/24/18 07/24/18 04:13 04:13 WBC 12.9 H RBC 3.01 L Hgb 8.9 L Hct 27.4 L MCV 91 MCH 29.6 MCHC 32.5 RDW 13.8 Plt Count 160 Sodium 139.7 Potassium 4.2 Chloride 103 Carbon Dioxide 27 Anion Gap 10 BUN 22 H Creatinine 0.90 Est GFR ( Amer) > 60 Est GFR (Non-Af Amer) > 60 Glucose 188 H Calcium 8.5 Impressions: Chest X-Ray 07/22/18 00:00 IMPRESSION: NO ACUTE RADIOGRAPHIC FINDING IN THE CHEST. Fluoroscopy 07/23/18 00:00 IMPRESSION: IMAGE(S) OBTAINED DURING PROCEDURE. Tibia/Fibula X-Ray 07/23/18 00:00 IMPRESSION: IMAGE(S) OBTAINED DURING PROCEDURE. Assessment & Plan - Diagnosis (1) Closed fracture of left tibia and fibula Qualifiers: Encounter type: initial encounter Qualified Code(s): S82.202A - Unspecified fracture of shaft of left tibia, initial encounter for closed fracture; S82.402A - Unspecified fracture of shaft of left fibula, initial encounter for closed fracture; S82.402A - Unspecified fracture of shaft of left fibula, initial encounter for closed fracture Is this a current diagnosis for this admission?: Yes Plan: Continue pain control. Continue DVT prophylaxis. Physical therapy. Anticipate senior care facility for rehab
[2018-07-24] MEDS: OXYCODONE HCL IR 5 MG TABLET PO PRN (14:39)
[2018-07-24] MEDS ORDERED: MAGNESIUM HYDROXIDE SUSP 30 ML UDCUP PO PRN (14:46)
--- NOTE | 2018-07-24 15:14 | PDOC PROGRESS REPORT ---
Subjective Progress Note for:: 07/24/18 Subjective:: 72 y.o. M status post ORIF of a left bimalleolar ankle fracture in the past presented to [facility] following a fall, now with a superimposed distal third fracture of the tibia that extends proximally to the proximal fibula. Hospitalist service was consulted for management of DM 2, HTN and paroxysmal A. fib. POD#1 ORIF L tibial fracture. Patient tolerated PT today but therapist recommends SNF because patient does not have adequate support at home. Reason For Visit: CLOSED FRACTURE OF LEFT TIBIA AND FIBULA Physical Exam Vital Signs: Temp Pulse Resp BP Pulse Ox 98.2 F 72 16 128/65 H 97 07/24/18 11:04 07/24/18 14:00 07/24/18 11:04 07/24/18 11:04 07/24/18 14:10 Intake & Output 07/23/18 07/24/18 07/25/18 06:59 06:59 06:59 Intake Total 1479 4080 1118 Output Total 260 Balance 1479 3820 1118 Weight 123.8 kg 120.3 kg General appearance: PRESENT: morbidly obese Eye exam: PRESENT: conjunctiva pink, PERRLA Mouth exam: PRESENT: moist Teeth exam: PRESENT: poor dentation Neck exam: PRESENT: full ROM Respiratory exam: PRESENT: symmetrical, unlabored Cardiovascular exam: PRESENT: +S1, +S2 Pulses: PRESENT: normal radial pulses GI/Abdominal exam: PRESENT: normal bowel sounds, soft. ABSENT: tenderness Rectal exam: PRESENT: deferred Extremities exam: ABSENT: full ROM Musculoskeletal exam: PRESENT: ambulatory - with assistance. ABSENT: full ROM Neurological exam: PRESENT: alert, awake, oriented to person, oriented to place , oriented to time, oriented to situation Psychiatric exam: PRESENT: appropriate affect Skin exam: PRESENT: dry, intact Results Laboratory Results: 07/24/18 04:13 07/24/18 04:13 07/24/18 07/24/18 04:13 04:13 WBC 12.9 H RBC 3.01 L Hgb 8.9 L Hct 27.4 L MCV 91 MCH 29.6 MCHC 32.5 RDW 13.8 Plt Count 160 Sodium 139.7 Potassium 4.2 Chloride 103 Carbon Dioxide 27 Anion Gap 10 BUN 22 H Creatinine 0.90 Est GFR ( Amer) > 60 Est GFR (Non-Af Amer) > 60 Glucose 188 H Calcium 8.5 Impressions: Chest X-Ray 07/22/18 00:00 IMPRESSION: NO ACUTE RADIOGRAPHIC FINDING IN THE CHEST. Fluoroscopy 07/23/18 00:00 IMPRESSION: IMAGE(S) OBTAINED DURING PROCEDURE. Tibia/Fibula X-Ray 07/23/18 00:00 IMPRESSION: IMAGE(S) OBTAINED DURING PROCEDURE. Status: Imported from PACS Assessment & Plan - Diagnosis (1) Closed fracture of left tibia and fibula Qualifiers: Encounter type: initial encounter Qualified Code(s): S82.202A - Unspecified fracture of shaft of left tibia, initial encounter for closed fracture; S82.402A - Unspecified fracture of shaft of left fibula, initial encounter for closed fracture; S82.402A - Unspecified fracture of shaft of left fibula, initial encounter for closed fracture Is this a current diagnosis for this admission?: Yes Plan: Management per ortho (2) Diabetes mellitus type 2 in obese Is this a current diagnosis for this admission?: Yes Plan: HgbA1c 5.9 Accu-Cheks before meals at bedtime. Humalog sliding scale insulin. Hold home dose metformin (3) Hypertension Qualifiers: Hypertension type: unspecified Qualified Code(s): I10 - Essential (primary ) hypertension Is this a current diagnosis for this admission?: Yes Plan: Continue home dose lisinopril and Norvasc. IV hydralazine as needed for SBP >180 (4) Paroxysmal atrial fibrillation Is this a current diagnosis for this admission?: Yes Plan: Patient reports remote history of PAF. No history of OK or heart failure. Current EKG demonstrates first-degree heart block. Patient was cleared for surgery, no intraop or postop complications - Time Time Spent with patient: 15-24 minutes Medications reviewed and adjusted accordingly: Yes Anticipated discharge: SNF Within: within 72 hours - Inpatient Certification Based on my medical assessment, after consideration of the patient's comorbidities, presenting symptoms, or acuity I expect that the services needed warrant INPATIENT care.: Yes I certify that my determination is in accordance with my understanding of Medicare's requirements for reasonable and necessary INPATIENT services [42 CFR 412.3e].: Yes Medical Necessity: Risk of Complication if Not Cared For in Hospital - Plan Summary Plan Summary: CONTINUE PT/OT. BLOOD PRESSURE AND BLOOD GLUCOSE WELL MANAGED. D/C LR IVF NOW THAT PATIENT IS EATING AND DRINKING. PLAN FOR D/C TO SNF.
[2018-07-24] MEDS: SENNOSIDES/DOCUSATE 8.6-50 MG 1 EACH TABLET PO SCH (17:01)
--- NOTE | 2018-07-24 20:42 | Progress Note ---
Provider Note Provider Note: CARDIOLOGY PROGRESS NOTE by Dr. Opal Alexander on 07/24/2018. Subjective: The patient denies any chest pain or discomfort. There is no shortness of breath. There is no PND orthopnea. There is no leg edema. There is no palpitations or near syncope or syncope. Note that the patient underwent her surgery, uneventfully. There is no TIA CVA symptoms. There is no arrhythmias seen on the monitor. PHYSICAL EXAMINATION: The patient is morbidly obese. In no acute distress she is well-groomed. There is adequate pain control. 07/24/18 11:04 Temperature 98.2 F Temperature Oral Source Pulse Rate 72 Respiratory 16 Rate Blood Pressure 128/65 H BP Location Left Arm BP Position Supine O2 Sat by Pulse 98 Oximetry Oxygen Flow 2.00 Rate Oxygen Delivery Nasal Cannula Method HEAD: Is atraumatic normocephalic. EYES: Pupils are equal round regular reactive to light accommodation. Extraocular movements are normal. There is no conjunctival pallor. There is no scleral icterus. EARS: Tympanic membranes are intact. External auditory canals are clear. NOSE: There is no deviated nasal septum. There is no inflammation of the nasal mucous membrane. There is no nasal polyps. MOUTH: Mucous membrane of the mouth are moist tongue is moist. There is no ulcers. There is no bleeding from the gums. THROAT: There is no redness of the oropharynx. There is no exudates. SKIN: There is no petechia or ecchymosis. There is no skin lesions or skin rashes. NECK: Is supple. There is no JVD. Carotids are equal there is no bruit. There is no lymphadenopathy. There is no goiter. There is no accessory muscle respiration use. Trachea central. LUNGS: Is clear to auscultation percussion, without any rhonchi rales or wheezing. There is no chest wall tenderness. HEART S1-S2 is heard there is no S3 gallop there is no S4 gallop. There is a systolic murmur in the left sternal border and the apex. Clinical exam shows no murmur of aortic stenosis or aortic regurgitation or mitral stenosis or mitral regurgitation. There is no rub. ABDOMEN: Is obese. Nontender. There is no hepatosplenomegaly. All sounds well heard. EXTREMITIES: Femorals are deep. Femorals are diminished. There is no femoral bruits. Leg pulses are well felt. There is no pedal edema. There is no DVT or cellulitis. There is no cyanosis or clubbing. There is no calf tenderness. Capillary refill is normal bilaterally. [employer]: The patient is conscious awake alert oriented x3 with no focal deficit. PSYCHIATRIC: The patient judgment and insight are intact. Affect is normal. 07/24/18 07/24/18 04:13 04:13 WBC 12.9 H Hgb 8.9 L Hct 27.4 L MCV 91 Plt Count 160 Sodium 139.7 Potassium 4.2 Chloride 103 Carbon Dioxide 27 Anion Gap 10 BUN 22 H Creatinine 0.90 Est GFR (Non-Af Amer) > 60 Glucose 188 H Calcium 8.5 IMPRESSION/RECOMMENDATION: 1. Status post accidental fall and fracture of the left lower leg and left ankle. The patient is status post uneventful surgical repair of the same. 2. Hypertension: Well controlled. 3. Diabetes mellitus: Continue antidiabetic medication, and monitor blood sugar. 4. Hyperlipidemia: Continue current therapy. 5 Abnormal EKG: Shows significant first-degree AV block and PVCs. No untoward clinical events, and patient asymptomatic. We will recheck the patient's EKG in the morning. 6. Morbid Obesity: Later, after she recovers from her current surgery, who recommended the patient have a diet and exercise program to lose weight. 7. Anemia, would carefully and cautiously watch the patient's hemoglobin, and intervene as needed. Patient's cardiac status is stable. Will sign off the case. Note 40 minutes spent on this patient with more than 50% of time spent in direct patient care. As per the patient patient's she will follow-up with me in the office after rehab.
[2018-07-24] MEDS: MORPHINE SULFATE 10 MG/ML INJ IV PRN (22:52)
[2018-07-25] MEDS: ATORVASTATIN CALCIUM 20 MG TABLET PO SCH (10:21)
[2018-07-25] MEDS: ASPIRIN 81 MG TABLET, ENT COATED PO SCH (10:21)
[2018-07-25] MEDS: ESCITALOPRAM OXALATE 10 MG TABLET PO SCH (10:21)
[2018-07-25] MEDS: AMLODIPINE BESYLATE 5 MG TABLET PO SCH (10:21)
[2018-07-25] MEDS: LISINOPRIL 10 MG TABLET PO SCH (10:22)
[2018-07-25] MEDS: CALCIUM CARBONATE 500 MG TABLET PO SCH (10:22)
[2018-07-25] MEDS: CHOLECALCIFEROL (D3) 1,000 UNIT TABLET PO SCH (10:22)
[2018-07-25] MEDS: SENNOSIDES/DOCUSATE 8.6-50 MG 1 EACH TABLET PO SCH ×2 (10:22→17:17)
[2018-07-25] MEDS: INSULIN LISPRO 100 UNIT/ML 3 ML VIAL SUBCUT PRN ×3 (11:41→22:17)
--- NOTE | 2018-07-25 12:56 | PDOC PROGRESS REPORT ---
Subjective Progress Note for:: 07/25/18 Subjective:: Patient doing very well. Pain adequately controlled. Just waiting for therapy and placement at rehab facility Reason For Visit: CLOSED FRACTURE OF LEFT TIBIA AND FIBULA Physical Exam Vital Signs: Temp Pulse Resp BP Pulse Ox 36.8 C 76 16 127/47 H 97 07/25/18 07:53 07/25/18 07:53 07/25/18 07:53 07/25/18 07:53 07/25/18 07:53 Intake & Output 07/24/18 07/25/18 07/26/18 06:59 06:59 06:59 Intake Total 4080 1384 Output Total 260 Balance 3820 1384 Weight 120.3 kg 124.1 kg General appearance: PRESENT: no acute distress Head exam: PRESENT: atraumatic, normocephalic Adult Front & Back Image: 1 - Dressing dry clean and intact. Patient is neurovascular intact distally with soft calf. Results Laboratory Results: 07/24/18 04:13 07/24/18 04:13 Impressions: Chest X-Ray 07/22/18 00:00 IMPRESSION: NO ACUTE RADIOGRAPHIC FINDING IN THE CHEST. Fluoroscopy 07/23/18 00:00 IMPRESSION: IMAGE(S) OBTAINED DURING PROCEDURE. Tibia/Fibula X-Ray 07/23/18 00:00 IMPRESSION: IMAGE(S) OBTAINED DURING PROCEDURE. Assessment & Plan - Diagnosis (1) Closed fracture of left tibia and fibula Qualifiers: Encounter type: initial encounter Qualified Code(s): S82.202A - Unspecified fracture of shaft of left tibia, initial encounter for closed fracture; S82.402A - Unspecified fracture of shaft of left fibula, initial encounter for closed fracture; S82.402A - Unspecified fracture of shaft of left fibula, initial encounter for closed fracture Is this a current diagnosis for this admission?: Yes Plan: 72-year-old female who is postop day 2 from intramedullary nailing of left distal third tibia fracture. Continue nonweightbearing and participate with therapy. Continue pain control and DVT prophylaxis Awaiting placement at rehab facility.
--- NOTE | 2018-07-25 22:21 | PDOC PROGRESS REPORT ---
Subjective Progress Note for:: 07/25/18 Subjective:: 72 y.o. M status post ORIF of a left bimalleolar ankle fracture in the past presented to [facility] following a fall, now with a superimposed distal third fracture of the tibia that extends proximally to the proximal fibula. Hospitalist service was consulted for management of DM 2, HTN and paroxysmal A. fib. POD#2 ORIF L tibial fracture. Patient tolerated PT today but therapist recommends SNF because patient does not have adequate support at home. Patient endorses constipation, no other complaints. Nursing staff has no concerns. Reason For Visit: CLOSED FRACTURE OF LEFT TIBIA AND FIBULA Physical Exam Vital Signs: Temp Pulse Resp BP Pulse Ox 98.5 F 77 15 146/51 H 96 07/25/18 19:49 07/25/18 19:49 07/25/18 19:49 07/25/18 19:49 07/25/18 19:49 Intake & Output 07/24/18 07/25/18 07/26/18 06:59 06:59 06:59 Intake Total 4080 1384 558 Output Total 260 160 Balance 3820 1384 398 Weight 120.3 kg 124.1 kg General appearance: PRESENT: morbidly obese Head exam: PRESENT: atraumatic Eye exam: PRESENT: conjunctiva pink, PERRLA Mouth exam: PRESENT: moist Neck exam: PRESENT: full ROM Respiratory exam: PRESENT: clear to auscultation hussein, symmetrical, unlabored Cardiovascular exam: PRESENT: +S1, +S2 Pulses: PRESENT: normal radial pulses GI/Abdominal exam: PRESENT: normal bowel sounds, soft Rectal exam: PRESENT: deferred Extremities exam: ABSENT: full ROM Musculoskeletal exam: PRESENT: ambulatory - with assistance. ABSENT: full ROM - limited rom of lle, normal inspection - LLE bandaged Neurological exam: PRESENT: alert, awake, oriented to person, oriented to place , oriented to time, oriented to situation Psychiatric exam: PRESENT: appropriate affect Skin exam: PRESENT: dry, intact, normal color Results Laboratory Results: 07/24/18 04:13 07/24/18 04:13 Impressions: Chest X-Ray 07/22/18 00:00 IMPRESSION: NO ACUTE RADIOGRAPHIC FINDING IN THE CHEST. Fluoroscopy 07/23/18 00:00 IMPRESSION: IMAGE(S) OBTAINED DURING PROCEDURE. Tibia/Fibula X-Ray 07/23/18 00:00 IMPRESSION: IMAGE(S) OBTAINED DURING PROCEDURE. Status: Imported from PACS Assessment & Plan - Diagnosis (1) Closed fracture of left tibia and fibula Qualifiers: Encounter type: initial encounter Qualified Code(s): S82.202A - Unspecified fracture of shaft of left tibia, initial encounter for closed fracture; S82.402A - Unspecified fracture of shaft of left fibula, initial encounter for closed fracture; S82.402A - Unspecified fracture of shaft of left fibula, initial encounter for closed fracture Is this a current diagnosis for this admission?: Yes Plan: Management per ortho (2) Diabetes mellitus type 2 in obese Is this a current diagnosis for this admission?: Yes Plan: HgbA1c 5.9 Accu-Cheks before meals at bedtime. Humalog sliding scale insulin. Hold home dose metformin (3) Hypertension Qualifiers: Hypertension type: unspecified Qualified Code(s): I10 - Essential (primary ) hypertension Is this a current diagnosis for this admission?: Yes Plan: Continue home dose lisinopril and Norvasc. IV hydralazine as needed for SBP >180 (4) Paroxysmal atrial fibrillation Is this a current diagnosis for this admission?: Yes Plan: Patient reports remote history of PAF. No history of MD or heart failure. Current EKG demonstrates first-degree heart block. Patient was cleared for surgery, no intraop or postop complications - Time Time Spent with patient: 15-24 minutes Medications reviewed and adjusted accordingly: Yes Anticipated discharge: SNF - Inpatient Certification Based on my medical assessment, after consideration of the patient's comorbidities, presenting symptoms, or acuity I expect that the services needed warrant INPATIENT care.: Yes I certify that my determination is in accordance with my understanding of Medicare's requirements for reasonable and necessary INPATIENT services [42 CFR 412.3e].: Yes Medical Necessity: Risk of Complication if Not Cared For in Hospital - Plan Summary Plan Summary: PLAN FOR D/C TO SNF PER PT RECOMMENDATIONS
[2018-07-26 07:09] LABS: HEMATOCRIT 26.5 % (36.0-47.0); HEMOGLOBIN 8.7 g/dL (12.0-15.5); MEAN CORPUSCULAR HEMOGLOBIN 29.5 pg (27.0-33.4); MEAN CORPUSCULAR VOLUME 90 fl (80-97); PLATELET COUNT 191 10^3/uL (150-450); RED BLOOD COUNT 2.96 10^6/uL (3.72-5.28); RED CELL DISTRIBUTION WIDTH 13.7 % (11.5-14.0); WHITE BLOOD COUNT 11.8 10^3/uL (4.0-10.5)
[2018-07-26 07:34] LABS: ANION GAP 5 (5-19); BLOOD UREA NITROGEN 27 mg/dL (7-20); CALCIUM 8.9 mg/dL (8.4-10.2); CARBON DIOXIDE 33 mmol/L (22-30); CHLORIDE 103 mmol/L (98-107); GLUCOSE 129 mg/dL (75-110); PHOSPHORUS 3.3 mg/dL (2.5-4.5); POTASSIUM 4.3 mmol/L (3.6-5.0); SODIUM 140.7 mmol/L (137-145)
[2018-07-26] MEDS: ATORVASTATIN CALCIUM 20 MG TABLET PO SCH (10:09)
[2018-07-26] MEDS: CALCIUM CARBONATE 500 MG TABLET PO SCH (10:09)
[2018-07-26] MEDS: ESCITALOPRAM OXALATE 10 MG TABLET PO SCH (10:09)
[2018-07-26] MEDS: CHOLECALCIFEROL (D3) 1,000 UNIT TABLET PO SCH (10:09)
[2018-07-26] MEDS: AMLODIPINE BESYLATE 5 MG TABLET PO SCH (10:09)
[2018-07-26] MEDS: SENNOSIDES/DOCUSATE 8.6-50 MG 1 EACH TABLET PO SCH ×2 (10:10→18:00)
[2018-07-26] MEDS: LISINOPRIL 10 MG TABLET PO SCH (10:10)
[2018-07-26] MEDS: ASPIRIN 81 MG TABLET, ENT COATED PO SCH (10:10)
[2018-07-26] MEDS: INSULIN LISPRO 100 UNIT/ML 3 ML VIAL SUBCUT PRN ×2 (12:25→18:57)
--- NOTE | 2018-07-26 17:42 | PDOC PROGRESS REPORT ---
Subjective Progress Note for:: 07/26/18 Subjective:: Amina Montes De Oca is a 72 y.o. female who had an operative reduction and internal fixation of a left bimalleolar ankle fracture on 23 July. She has had an essentially unremarkable postoperative course. She states that she is having no difficulty with her breathing and has not had a cough or fever. She is having no difficulty passing her urine with no dysuria. She has not experienced any nausea or vomiting, diarrhea, dyspepsia or increased flatulence. She is able to tolerate her diet quite well. She is taking medication for constipation which she thinks is helping. Reason For Visit: CLOSED FRACTURE OF LEFT TIBIA AND FIBULA Physical Exam Vital Signs: Temp Pulse Resp BP Pulse Ox 99.0 F 75 16 123/47 L 94 07/26/18 15:58 07/26/18 15:58 07/26/18 15:58 07/26/18 15:58 07/26/18 15:58 Intake & Output 07/24/18 07/25/18 07/26/18 23:59 23:59 23:59 Intake Total 1668 824 440 Output Total 160 Balance 1668 664 440 Weight 120.3 kg 124.1 kg 124.8 kg General appearance: PRESENT: no acute distress, cooperative Head exam: PRESENT: atraumatic, normocephalic Eye exam: ABSENT: conjunctival injection, scleral icterus Mouth exam: PRESENT: neck supple, tongue midline Neck exam: ABSENT: thyromegaly, tracheal deviation Respiratory exam: PRESENT: clear to auscultation hussein, symmetrical, unlabored Cardiovascular exam: PRESENT: RRR. ABSENT: clicks, gallop, rubs Vascular exam: PRESENT: normal capillary refill. ABSENT: pallor GI/Abdominal exam: PRESENT: normal bowel sounds, soft Rectal exam: PRESENT: deferred Extremities exam: PRESENT: clubbing, other - Left lower extremity in a short leg cast Musculoskeletal exam: ABSENT: ambulatory, deformity Neurological exam: PRESENT: alert, oriented to person, oriented to place, oriented to time, oriented to situation Psychiatric exam: PRESENT: appropriate affect, normal mood Skin exam: ABSENT: intact, jaundice, rash, urticaria Results Laboratory Results: 07/26/18 05:22 07/26/18 05:22 07/26/18 07/26/18 05:22 05:22 WBC 11.8 H RBC 2.96 L Hgb 8.7 L Hct 26.5 L MCV 90 MCH 29.5 MCHC 33.0 RDW 13.7 Plt Count 191 Sodium 140.7 Potassium 4.3 Chloride 103 Carbon Dioxide 33 H Anion Gap 5 BUN 27 H Creatinine 0.86 Est GFR ( Amer) > 60 Est GFR (Non-Af Amer) > 60 Glucose 129 H Calcium 8.9 Phosphorus 3.3 Magnesium 1.5 L Impressions: Chest X-Ray 07/22/18 00:00 IMPRESSION: NO ACUTE RADIOGRAPHIC FINDING IN THE CHEST. Fluoroscopy 07/23/18 00:00 IMPRESSION: IMAGE(S) OBTAINED DURING PROCEDURE. Tibia/Fibula X-Ray 07/23/18 00:00 IMPRESSION: IMAGE(S) OBTAINED DURING PROCEDURE. Assessment & Plan - Diagnosis (1) Closed fracture of left tibia and fibula Qualifiers: Encounter type: initial encounter Qualified Code(s): S82.202A - Unspecified fracture of shaft of left tibia, initial encounter for closed fracture; S82.402A - Unspecified fracture of shaft of left fibula, initial encounter for closed fracture; S82.402A - Unspecified fracture of shaft of left fibula, initial encounter for closed fracture Is this a current diagnosis for this admission?: Yes Plan: Orthopedic surgery is managing the patient's fracture postoperative care. (2) Diabetes mellitus type 2 in obese Is this a current diagnosis for this admission?: Yes Plan: Amina's diabetes is in very good control and therefore we will continue her current plan without change. (3) Hypertension Qualifiers: Hypertension type: unspecified Qualified Code(s): I10 - Essential (primary ) hypertension Is this a current diagnosis for this admission?: Yes Plan: Continue current medications and treatment. (4) Paroxysmal atrial fibrillation Is this a current diagnosis for this admission?: Yes Plan: Continue current therapy and monitoring. - Time Time Spent with patient: 15-24 minutes
[2018-07-26] MEDS: MAGNESIUM SULFATE/D5W 1 GM/100 ML RTUPB IV SCH ×2 (18:00→19:41)
[2018-07-27] MEDS: INSULIN LISPRO 100 UNIT/ML 3 ML VIAL SUBCUT PRN ×2 (01:08→12:16)
--- NOTE | 2018-07-27 07:19 | PDOC TRANSFER SUMMARY ---
General - Admit/Disc Date/PCP Admission Date/Primary Care Provider: 07/21/18 21:52 RAJ JUÁREZ MD Discharge Date: 07/27/18 - Discharge Diagnosis (1) Closed fracture of left tibia and fibula Is this a current diagnosis for this admission?: Yes - Additional Information Resuscitation Status: Full Code Home Medications: Amlodipine Besylate 5 mg PO DAILY 04/01/16 Aspirin [Aspirin EC] 81 mg PO DAILY 04/01/16 Atorvastatin Calcium 20 mg PO DAILY 04/01/16 Calcium Carbonate [Calcium] 600 mg PO DAILY 04/01/16 Escitalopram Oxalate [Lexapro] 20 mg PO DAILY 04/01/16 Glimepiride 1 mg PO DAILY 04/01/16 Lisinopril 10 mg PO DAILY 04/01/16 Metformin HCl [Metformin HCl ER] 1,000 mg PO DAILY 04/01/16 Cholecalciferol (Vitamin D3) [Vitamin D3] 1,000 unit PO DAILY 01/20/17 Naproxen Sodium [Aleve] 220 mg PO ASDIR PRN 01/20/17 Metoprolol Tartrate [Lopressor 25 mg Tablet] 25 mg PO DAILY 07/22/18 Triamcinolone Acetonide 1 applic TP BID 07/22/18 History of Present Illness Admission Date/PCP: 07/21/18 21:52 RAJ JUÁERZ MD History of Present Illness: Patient is a 72-year-old white female status post open reduction internal fixation of a left bimalleolar ankle fracture in the distant past now with a distal tibia fracture just proximal to the hardware. Hospital Course Hospital Course: Patient is admitted through the emergency room and subsequently undergoes an open reduction internal fixation of the left distal tibia fracture which is uncomplicated. She is returned to floor and started on physical therapy for touchdown weightbearing restriction on her left lower extremity. Overall her postoperative course is smooth, pain is well controlled. Vital signs remained stable and afebrile, and the left lower extremity dressing remains clean dry and intact. Physical Exam Vital Signs: Temp Pulse Resp BP Pulse Ox 36.9 C 75 14 137/56 H 96 07/27/18 03:54 07/27/18 03:54 07/27/18 03:54 07/27/18 03:54 07/27/18 03:54 Intake & Output 07/26/18 07/27/18 07/28/18 06:59 06:59 06:59 Intake Total 998 450 Output Total 160 Balance 838 450 Weight 124.8 kg 123.4 kg General appearance: PRESENT: no acute distress, obese Head exam: PRESENT: normocephalic Respiratory exam: PRESENT: unlabored Cardiovascular exam: PRESENT: RRR Pulses: PRESENT: +1 pedal pulses bilateral Vascular exam: PRESENT: normal capillary refill GI/Abdominal exam: PRESENT: soft Rectal exam: PRESENT: deferred Musculoskeletal exam: PRESENT: other - Left lower extremity dressing remains clean dry and intact. Distal neurovascular examination is intact. Neurological exam: PRESENT: alert, awake, oriented to person, oriented to place , oriented to time, oriented to situation. ABSENT: motor sensory deficit Psychiatric exam: PRESENT: appropriate affect, normal mood. ABSENT: homicidal ideation, suicidal ideation Skin exam: PRESENT: dry, intact, warm. ABSENT: cyanosis, rash Results Laboratory Results: 07/26/18 05:22 07/26/18 05:22 07/26/18 07/26/18 05:22 05:22 WBC 11.8 H RBC 2.96 L Hgb 8.7 L Hct 26.5 L MCV 90 MCH 29.5 MCHC 33.0 RDW 13.7 Plt Count 191 Sodium 140.7 Potassium 4.3 Chloride 103 Carbon Dioxide 33 H Anion Gap 5 BUN 27 H Creatinine 0.86 Est GFR ( Amer) > 60 Est GFR (Non-Af Amer) > 60 Glucose 129 H Calcium 8.9 Phosphorus 3.3 Magnesium 1.5 L Impressions: Chest X-Ray 07/22/18 00:00 IMPRESSION: NO ACUTE RADIOGRAPHIC FINDING IN THE CHEST. Fluoroscopy 07/23/18 00:00 IMPRESSION: IMAGE(S) OBTAINED DURING PROCEDURE. Tibia/Fibula X-Ray 07/23/18 00:00 IMPRESSION: IMAGE(S) OBTAINED DURING PROCEDURE. Status: Imported from PACS Transfer Plan - Disposition Transfer Plan: Patient to be transferred to a alf facility with a touchdown weightbearing restriction on the left lower extremity. Follow-up with Dr. Mely Zafar [place] for surgery in approximately 10 days for suture removal. Qualifiers - * PATIENT BEING DISCHARGED WITH ANY OF THE FOLLOWING DIAGNOSIS: No VTE patient discharged on overlapping Therapy?: Yes
[2018-07-27 08:51] VITALS: BP 141/66
[2018-07-27] MEDS: ATORVASTATIN CALCIUM 20 MG TABLET PO SCH (10:35)
[2018-07-27] MEDS: CALCIUM CARBONATE 500 MG TABLET PO SCH (10:35)
[2018-07-27] MEDS: CHOLECALCIFEROL (D3) 1,000 UNIT TABLET PO SCH (10:35)
[2018-07-27] MEDS: ESCITALOPRAM OXALATE 10 MG TABLET PO SCH (10:36)
[2018-07-27] MEDS: ASPIRIN 81 MG TABLET, ENT COATED PO SCH (10:36)
[2018-07-27] MEDS: SENNOSIDES/DOCUSATE 8.6-50 MG 1 EACH TABLET PO SCH (10:36)
[2018-07-27] MEDS: LISINOPRIL 10 MG TABLET PO SCH (10:36)
[2018-07-27] MEDS: AMLODIPINE BESYLATE 5 MG TABLET PO SCH (10:36)
== END 2018-07-27 16:04 | DRG 493 ==
LOC: ER 19:10 → EH 21:52 → 4N 07-22 03:42
PROVIDERS: ADMIT Orthopaedic Surgery; ATTEND Orthopaedic Surgery
PROC: 0QSH06Z Reposition Left Tibia with Intramedullary Internal Fixation Device, Open Approach (ICD-10-PCS; principal; 2018-07-23 11:00)
DX: S82.252A Displaced comminuted fracture of shaft of left tibia, initial encounter for closed fracture (principal); Z68.41 Body mass index [BMI] 40.0-44.9, adult; S82.832A Other fracture of upper and lower end of left fibula, initial encounter for closed fracture; Z87.81 Personal history of (healed) traumatic fracture; E66.01 Morbid (severe) obesity due to excess calories; W18.30XA Fall on same level, unspecified, initial encounter; I10 Essential (primary) hypertension; I48.0 Paroxysmal atrial fibrillation; Y92.008 Other place in unspecified non-institutional (private) residence as the place of occurrence of the external cause; E78.00 Pure hypercholesterolemia, unspecified; K59.00 Constipation, unspecified; E11.9 Type 2 diabetes mellitus without complications; M19.90 Unspecified osteoarthritis, unspecified site; E78.5 Hyperlipidemia, unspecified; Z79.84 Long term (current) use of oral hypoglycemic drugs; Z92.3 Personal history of irradiation; Z92.21 Personal history of antineoplastic chemotherapy; Z79.899 Other long term (current) drug therapy
CPT/HCPCS: 01480; 36415; 71045; 80048; 80053; 82962; 83036; 83735; 84100; 85025; 85027; 85610; 85730; 93005; 93010; 96361; 96374; 99285; C1713; C1769; J0131; J0330; J0690; J1100; J1815; J2250; J2270; J2370; J2405; J2704; J3010; J3475; J3490; J7030; J7120